=== PATIENT | female | born 1935 | race Caucasian/White ===

== ENCOUNTER 2017-10-12 10:12 | Inpatient (IN) ==
[2017-10-12 10:54] LABS: Basophils # (Auto) 0 K/mcL (0.0-0.3); Basophils % (Auto) 0.4 % (0.0-2.0); Eosinophils # (Auto) 0 K/mcL (0.0-0.7); Eosinophils % (Auto) 0.6 % (0.0-7.0); Granulocytes % (Auto) 71.4 % (38.0-78.0); Lymphocytes # (Auto) 0.5 K/mcL (1.5-4.8); Mean Cell Volume 98.3 fL (80.0-100.0); Mean Corpuscular Hemoglobin 32.4 pg (26.0-34.0); Monocytes # (Auto) 0.4 K/mcL (0.1-0.9); Monocytes % (Auto) 12.6 % (1.0-12.0); Platelet Count 158 K/mcL (140-440); RBC 2.45 M/mcL (4.00-5.20); Red Cell Distribution Width 16.1 % (11.5-14.5)
[2017-10-12 11:14] LABS: ALT/SGPT 13 U/l (0-40); Albumin 3.6 gm/dL (3.2-5.2); Albumin/Globulin Ratio 1.2 (1.0-2.3); Alkaline Phosphatase 42 U/L (39-117); Blood Urea Nitrogen 16 mg/dl (8-23)
--- NOTE | 2017-10-12 11:30 | Emergency Department Note ---
Recheck HPI - General Chief Complaint: Recheck/Abnormal Lab/Rx Stated Complaint: Low H&H Time Seen by Provider: 10/12/17 10:14 Source: patient Mode of arrival: wheelchair Limitations: no limitations - History of Present Illness HPI Narrative: 82-year-old female presents from [facility] due to low H&H. She had routine labs done and her hemoglobin was 6.4. She has been at [facility] for 2 days. She denies any symptoms such as abdominal pain, nausea, vomiting, black tarry stools , blood in her stools, dizziness. She is on oxygen and is on about 2 L. She has chronic congestive heart failure and respiratory failure. She is on Plavix. 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 She does not know if she has ever been anemic before and states she has never been treated for GI bleed. She is a DNR with limited intervention only. Her daughter is with her and would like her to have treatment if it will save her life. She has her power of contracts attorney. - Related Data Home Medications Medication Instructions Recorded Confirmed Raloxifene HCl [Evista] 60 mg PO DAILY 07/16/16 10/12/17 amLODIPine [Norvasc] 5 mg PO DAILY 07/16/16 10/12/17 hydrOXYzine [Atarax] 25 mg PO BIDP PRN 07/16/16 10/12/17 Acetaminophen [Tylenol] 650 mg PO Q4HP PRN 10/12/17 10/12/17 Anoro Ellipta 1 appful IN DAILY 10/12/17 10/12/17 Bisacodyl [Dulcolax] 10 mg UT DAILYP PRN 10/12/17 10/12/17 Clopidogrel Bisulfate [Plavix] 75 mg PO DAILY 10/12/17 10/12/17 Fish Oil/Borage/Flax/Om3,6,9#1 400 mg PO DAILY 10/12/17 10/12/17 [[place] 3-6-9 Complex Softgel] Furosemide [Lasix] 20 mg PO BID 10/12/17 10/12/17 Losartan Potassium [Cozaar] 100 mg PO DAILY 10/12/17 10/12/17 Magnesium Hydroxide [Milk of 30 ml PO DAILYP PRN 10/12/17 10/12/17 Magnesia] Metoprolol Tartrate [Lopressor] 25 mg PO BID 10/12/17 10/12/17 Multivitamin,Ther and Minerals 1 each PO DAILY 10/12/17 10/12/17 [Multivitamins with Minerals Hp] Na Phos,M-B/Na Phos,Di-Ba [Fleets 1 dose UT DAILYP PRN 10/12/17 10/12/17 Adult] Ranitidine HCl [Heartburn Relief] 150 mg PO BID 10/12/17 10/12/17 Allergies Allergy/AdvReac Type Severity Reaction Status Date / Time No Known Drug Allergies Allergy Verified 10/12/17 10:14 Review of Systems All systems ED: reviewed and negative except as stated. Past Medical History - Past Medical History Medical history: Reports: CHF, hypertension, other (respiratory failure chronic) Psychiatric history: Reports: no psych history CHILDR[employer] AUTHOR history: Reports: non-contributory Surgical history ED: Reports: non-contributory Family history: Reports: non-contributory - Social History smoking status: Former smoker Physical Exam Limitations: no limitations General appearance: alert, in no apparent distress Head: atraumatic Eye: Present: other (right eye shut, this is chronic) Neck: Present: normal inspection, full ROM Chest: Present: normal inspection, symmetric chest wall rise Respiratory: Present: other (decreased in lower lobes) Cardiovascular: Present: regular rate, normal heart sounds Abdominal: Present: soft, normal bowel sounds. Absent: tenderness Rectal: Present: heme (+) stool, bloody stool, other (She has a 1 cm pressure sore over the coccyx with some erythema surrounding) Extremities: Present: full ROM, pedal edema Neurological: Present: alert, oriented X3, CN II-XII intact Psychiatric: Present: normal affect, normal mood Skin: Present: warm, dry, intact Course Course Narrative: Patient stable. She will have a scope by Dr. Aguilar and will receive blood and be admitted by Dr. Hopper Vital Signs Temperature 98.7 F 10/12/17 10:14 Pulse Rate 70 10/12/17 10:14 Respiratory Rate 20 10/12/17 10:14 Blood Pressure 136/61 10/12/17 10:14 Pulse Oximetry (%) 94 10/12/17 10:14 Temperature 98.7 F 10/12/17 10:14 Pulse Rate 76 10/12/17 13:03 Respiratory Rate 27 H 10/12/17 13:03 Blood Pressure 141/88 10/12/17 13:03 Pulse Oximetry (%) 88 L 10/12/17 13:03 Recheck/Abnormal Lab/Rx - Lab Data Lab results reviewed: Yes I reviewed the patient's lab results. Result diagrams: 10/12/17 10:24 10/12/17 10:24 Lab Results 10/12/17 10/12/17 Range/Units 10:24 10:24 WBC 3.5 L (4.5-11.0) K/mcL RBC 2.45 L (4.00-5.20) M/mcL Hgb 7.9 L (12.0-15.0) g/dL Hct 24.1 L (36.0-48.0) % POC Hct 26.0 L (36.0-48.0) % MCV 98.3 (80.0-100.0) fL MCH 32.4 (26.0-34.0) pg MCHC 33.0 (31.0-36.0) g/dL RDW 16.1 H (11.5-14.5) % Plt Count 158 (140-440) K/mcL MPV 9.8 (7.4-10.4) fL Gran % 71.4 (38.0-78.0) % Lymph % (Auto) 15.0 L (15.5-49.0) % Cowley % (Auto) 12.6 H (1.0-12.0) % Eos % (Auto) 0.6 (0.0-7.0) % Baso % (Auto) 0.4 (0.0-2.0) % Gran # 2.5 (1.8-8.0) K/mcL Lymph # (Auto) 0.5 L (1.5-4.8) K/mcL Cowley # (Auto) 0.4 (0.1-0.9) K/mcL Eos # (Auto) 0 (0.0-0.7) K/mcL Baso # (Auto) 0 (0.0-0.3) K/mcL POC Sodium 139 (133-145) mmol/L Sodium 138 (133-145) mmol/L POC Potassium 3.6 (3.3-5.1) mmol/L Potassium 3.7 (3.3-5.1) mmol/L POC Chloride 96 (96-108) mmol/L Chloride 97 (96-108) mmol/L Carbon Dioxide 33 H (22-30) mmol/L POC Total CO2 29 (22-30) mmol/L Anion Gap 8.0 (8-16) POC BUN 17 (8-23) mg/dl BUN 16 (8-23) mg/dl Creatinine 1.0 (0.6-1.1) mg/dl POC Creatinine 1.2 H (0.6-1.1) mg/dl GFR Calculation 52 Glucose 105 (70-105) mg/dL POC Glucose 105 (70-105) mg/dL Calcium 8.7 (8.6-10.4) mg/dl POC WB Ioniz Calcium 1.10 L (1.16-1.32) mmol/L Total Bilirubin 0.2 (0.0-1.0) mg/dL AST 26 (0-37) U/l ALT 13 (0-40) U/l Alkaline Phosphatase 42 (39-117) U/L Total Protein 6.7 (5.9-8.4) gm/dL Albumin 3.6 (3.2-5.2) gm/dL Globulin 3.1 (2.2-3.7) gm/dL Albumin/Globulin Ratio 1.2 (1.0-2.3) - Radiology Data Radiology results reviewed: Yes I reviewed the patient's radiology results. Moderate left and small right pleural effusion with compressive atelectasis left lower lobe. Moderate cardiomegaly - no vascular congestion to suggest active CHF however. Disposition Pt seen by DOOR OPENER/PA only: Yes Clinical Impression: GI bleed, CHF (congestive heart failure), Pleural effusion Disposition: Xfer As Inpt ([facility]) Condition: Fair Referrals: Nicole Rey ARNP [Primary Care Provider] -
--- NOTE | 2017-10-12 11:41 | XRay Report ---
CLINICAL INFORMATION: Edema and lung crackles COMPARISON: None. FINDINGS: Heart is moderately enlarged. Mediastinum and pulmonary vessels are normal. Moderate left and small right pleural effusions are appreciated holding in compressive atelectasis of left lower lobe and inferior right lower and middle lobes. Bones soft tissues are normal. IMPRESSION: Moderate left and small right pleural effusion with compressive atelectasis left lower lobe. Moderate cardiomegaly - no vascular congestion to suggest active CHF however. Interpreted and Authenticated by: Jorge Barrera 10/12/17
[2017-10-12] MEDS ORDERED: 0.9 % SODIUM CHLORIDE 250 ML IV SCH ×2 (11:45→13:59)
--- NOTE | 2017-10-12 13:15 | Internal Med History&Physical ---
Medical - H&P: HPI Patient information: Note initiated : 10/12/17 at 1:08 pm Service Date, if different from initiated Date: [] Patient: Heidi Zhu 82 y/o F admitted on for Low H&H. Chief Complaint: [] History of present illness: Ms. Zhu is a 82 year old F with h/o chf, copd, on oxygen 2 L, cerebral aneurysm , pvd, presents to the ER today from [facility] for evaluation of low hb and progressively dropping hb. Daughter is by the bed side providing some history, pt is also able to participate in decision making process. The patient was admitted to [facility] last month it seems for respiratory failure, she was discharged home it seems, she was living with her grand daugther, but was unable to care for self, She was then admitted to [facility] 3 days ago. It seems her hb was checked during labs and her hb had dropped to 6.9, she was therefore sent here for further evaluation. The patient has no acute complaints or concerns, she is lying in bed without any complaints, no chest pain, no shortness of breath, no cough, no headache or dizziness, no changes or difficulty in swallowing, no GI complaints or symptoms , she has poor visino0 and unable t tell if she has had black stools or obvious blood in stools. In the ER she was noted to be hemodynamically stable, her CXR shows dell effusions, left > right, new since last cxr, but had effusions on previous x rays. her hb was 7.9, her f ob was positive. We do not have GI physician available for consult, Dr Mooney our general surgeon was consulted who agreed to evaluate patient and do the need ful EGD/ Colonoscopy after pt is stable. - Constitutional Constitutional: Present: fatigue, weakness. Absent: chills, fever(s), headache( s) - EENT Nose, mouth and throat: Absent: disequilibrium, dizziness, dysphagia - Cardiovascular Cardiovascular: Absent: chest pain, pedal edema, syncope - Respiratory Respiratory: Absent: dyspnea, wheezing - Gastrointestinal Gastrointestinal: Absent: diarrhea, dyspepsia, dysphagia - Genitourinary Genitourinary: Absent: hematuria - Musculoskeletal Musculoskeletal: Absent: muscle weakness, myalgias - Integumentary Integumentary: Absent: wounds, jaundice - Neurological Neurological: Absent: headache(s), syncope - Endocrine Endocrine: Absent: polydipsia, polyphagia, polyuria - Hematologic/Lymphatic Hematologic/Lymphatic: Absent: easy bleeding, easy bruising - Allergic/Immunologic Allergic/Immunologic: Absent: uticaria, wheezing Medical - H&P: PMH Medical history: HTN HLD Atheroscleorois Cerebral aneurysm COPD Chr resp failure 2 L oxygen carotid artery disease h/o ovarian cancer Surgical history: Hysterectomy Cerebral angiogram Pertinent family history: Sister melanoma Sister lung cancer Sister Stomach cancer Father [place] at 46 Social history: recnetly quit smoker lives in [facility] for 3 days denies etoh, Denies recreational drug use Medical - H&P: Meds Home Medications Medication Instructions Recorded Confirmed Type Raloxifene HCl [Evista] 60 mg PO DAILY 07/16/16 10/12/17 History amLODIPine [Norvasc] 5 mg PO DAILY 07/16/16 10/12/17 History hydrOXYzine [Atarax] 25 mg PO BIDP PRN 07/16/16 10/12/17 History Acetaminophen [Tylenol] 650 mg PO Q4HP PRN 10/12/17 10/12/17 History Anoro Ellipta 1 appful IN DAILY 10/12/17 10/12/17 History Bisacodyl [Dulcolax] 10 mg SD DAILYP PRN 10/12/17 10/12/17 History Clopidogrel Bisulfate [Plavix] 75 mg PO DAILY 10/12/17 10/12/17 History Fish Oil/Borage/Flax/Om3,6,9#1 400 mg PO DAILY 10/12/17 10/12/17 History [[place] 3-6-9 Complex Softgel] Furosemide [Lasix] 20 mg PO BID 10/12/17 10/12/17 History Losartan Potassium [Cozaar] 100 mg PO DAILY 10/12/17 10/12/17 History Magnesium Hydroxide [Milk of 30 ml PO DAILYP PRN 10/12/17 10/12/17 History Magnesia] Metoprolol Tartrate [Lopressor] 25 mg PO BID 10/12/17 10/12/17 History Multivitamin,Ther and Minerals 1 each PO DAILY 10/12/17 10/12/17 History [Multivitamins with Minerals Hp] Na Phos,M-B/Na Phos,Di-Ba [Fleets 1 dose SD DAILYP PRN 10/12/17 10/12/17 History Adult] Ranitidine HCl [Heartburn Relief] 150 mg PO BID 10/12/17 10/12/17 History Allergies Allergy/AdvReac Type Severity Reaction Status Date / Time No Known Drug Allergies Allergy Verified 10/12/17 10:14 Medical - H&P: Exam - Constitutional Vitals: Temp Pulse Resp BP Pulse Ox 98.7 F 76 27 H 141/88 88 L 10/12/17 10:14 10/12/17 13:03 10/12/17 13:03 10/12/17 13:03 10/12/17 13:03 Exam: GENERAL: The patient is a well-developed,mal-nourished in no apparent distress. Is alert and oriented x 3 VITAL SIGNS: Reviewed and as noted elsewhere. HEENT: Head is normocephalic and atraumatic. right eye is closed, unable to open (due to cerebral aneurysm). Pupils are equal, round, and reactive to light. Nares appeared normal. Mouth appears any without lesions. Mucous membranes are moist. NECK: Normal to inspection, Supple, No lymphadenopathy or thyromegaly. LUNGS: Air entry decreased on left side > right side, prolonged exp phase, dell crackles insipratory. HEART: Regular rate and rhythm normal, S1 and S2 heard, no Gallop, S3 or Rub Noted, ABDOMEN: Soft, nontender, and nondistended. Positive bowel sounds. No hepatosplenomegaly was noted. EXTREMITIES: No cyanosis, clubbing, rash, lesions, edema ++ NEUROLOGIC: Cranial nerves II through XII are grossly intact. Motor and Sensory System Grossly Intact PSYCHIATRIC: Normal affect, Normal Mood. Appropriate Behavior. SKIN: No ulceration or wounds noted, No jaundice, No rash noted. Medical - H&P: Reslt - Labs CBC & Chem 7: 10/12/17 10:24 10/12/17 10:24 Labs: Short CBC 10/12/17 Range/Units 10:24 WBC 3.5 L (4.5-11.0) K/mcL Hgb 7.9 L (12.0-15.0) g/dL Hct 24.1 L (36.0-48.0) % Plt Count 158 (140-440) K/mcL BMP 10/12/17 10:24 Sodium 138 Potassium 3.7 Chloride 97 Carbon Dioxide 33 H BUN 16 Creatinine 1.0 Glucose 105 Calcium 8.7 Liver Function 10/12/17 Range/Units 10:24 Total Bilirubin 0.2 (0.0-1.0) mg/dL AST 26 (0-37) U/l ALT 13 (0-40) U/l Alkaline Phosphatase 42 (39-117) U/L Albumin 3.6 (3.2-5.2) gm/dL - Impressions Cerebral Angiogram 08/2017 Ultrasound-guided vascular access x2. Hemostasis was achieved with manual compression. Aortogram and iliac angiography demonstrates severe bilateral common and external iliac artery calcified stenosis. This would be an impediment to access into the aorta, although on the right side, it is much more achievable. Right vertebral arteriography demonstrates the vertebral artery to end in PICA. Right common and cerebral arteriography demonstrates a severe calcified stenosis of the internal carotid artery origin. The carotid artery intracranially demonstrates a large carotid aneurysm with a wide neck. The aneurysm itself measures 18.28 x 19.64 millimeters with a carotid artery diameter of approximately 6 millimeters. The aneurysm itself is amenable to pipeline stent placement, however, the carotid artery is an impediment to access. 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 The patient's primary left hemispheric flow is from an enlarged ophthalmic artery with retrograde flow. Dominant left vertebral artery supplying both the right cerebellum as well as the posterior segments of the left MCA territory. Echo Conclusion: 1) Normal left ventricular size with left ventricular concentric remodeling and low normal ejection fraction of around 50 to 55% without obvious regional wall motion abnormalities. 2) Grade II diastolic dysfunction. 3) Trivial mitral insufficiency. 4) Mild tricuspid insufficiency with RV pressures of 37mmHg. 5) Of note is that during this study patient had stage II hypertension which may affect loading condition and left ventricular systolic performance. CXR 09/09/2017 Findings: Heart enlarged. Emphysematous changes present. No acute consolidation or pleural effusion. No pneumothorax. Impression: Cardiomegaly and COPD without acute pathology. Medical - H&P: A/P - Narrative A/P Narrative: A/P Acute GI bleed- General Surgery consulted for EGD/ Colnoscopy Acute blood loss anemia- Hb 7.9, transfuse 1 unit, monitor, on lasix to prevent volume overload congestive heart failure- Diastolic grade 2 , IV lasix for now Pleural effusion bilateral, left > right, could be from CHF, get CT given recent h/o pna Severe atherosclerosis- continue antiplatelet agents. HTN- continue beta nannette, hold zbigniew/arb for now monitor bp DVT scd given GIB DNR code status Plan of care reviewed with pt, pts fabiana and Dr Mooney.
[2017-10-12 13:40] LABS: Appearance,Urine CLEAR; Bacteria,Urine 0 /hpf (0); Bilirubin,Urine NEG (NEG); Color,Urine YELLOW; Glucose,Urine (UA) NEGATIVE (NEG); Leukocyte Esterase,Urine NEG /uL (NEG); Mucus,Urine FEW /hpf (0); Protein,Urine NEG (NEG); Specific Gravity,Urine 1.012 (1.000-1.035); Urine Blood NEG mg/dL (<0.03); Urine Hyaline Cast 4 /lpf (0-2); Urine RBC < 1 /hpf (0-1); Urine Squamous Epithelial Cell < 1 /hpf (0-4); Urine WBC 2 /hpf (0-4); Urobilinogen,Urine NEG (NEG)
--- NOTE | 2017-10-12 13:55 | General Surgery Consult Note ---
History of Present Illness Patient information: Note initiated : 10/12/17 at 1:53 pm Service Date, if different from initiated Date: [] Patient: Heidi Zhu 82 y/o F admitted on for Low H&H. Chief Complaint: [] Reason for consult: other (anemia and progressive weakness) History of present illness: 82-year-old female who was brought to the emergency room because personnel at the [facility] felt that she was having difficulty breathing. The patient has a history of congestive heart failure and recent pneumonia. She was treated at [facility] on 67 through 08/29/17 and 623 through 09/11/17 for these problems. She was home for 30 days but became progressively weaker. She was admitted to [facility] 3 days ago. Routine labs revealed that her hemoglobin was 7.9 and she was having difficulty breathing. She was therefore sent to the emergency room for evaluation. The patient has very poor vision and does not know if she has had rectal bleeding or melena. Her last recorded hemoglobin was 11.6 on 09/08/17. She does have significant rales and coarse tubular breath sounds with hypoxemia. She also has a new pleural effusion which was not apparent on the x- rays from 09/08 through 09/11/17. She has been admitted and will be transfused. Stool guaiacs will be checked. She has a fullness in the right upper quadrant that may be colonic in origin and will need to have an upper abdominal CT. Review of Systems - Constitutional fatigue, malaise, weakness, weight loss - EENT Eyes: bilateral: decreased vision, loss of peripheral vision Nose, mouth and throat: abnormal hearing - Cardiovascular irregular heart rhythm, leg edema, pedal edema, rapid heart rate, no chest pain with activity - Respiratory cough, dyspnea on exertion, chest congestion - Gastrointestinal bloating, no abdominal pain, no hematochezia, no melena, no nausea, no vomiting - Genitourinary Genitourinary: urinary frequency, urinary incontinence - Musculoskeletal abnormal gait (wheelchair-bound with very unsteady gait even with assistance) - Integumentary change in pigmentation, unusual bruising - Neurological as per HPI, abnormal gait, abnormal hearing, dizziness, lack of coordination - Psychiatric depression - Endocrine fatigue - Hematologic/Lymphatic easy bruising, no easy bleeding, no lymphadenopathy - Allergic/Immunologic no tongue swelling, no throat swelling, no uticaria, no wheezing, no lip swelling Past History Past medical history: Systolic congestive heart failure Hypertension Chronic obstructive lung disease with recent exacerbation Diabetes mellitus type 2 Peripheral vascular disease bilateral iliac and peripheral vessels 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 History of ovarian cancer Past surgical history: Total abdominal hysterectomy with bilateral salpingo-oophorectomy Past family history: Sister with melanoma Coronary artery disease Lung cancer Stomach cancer Past social history: Presently at [facility] Every day smoker Occasional drinker Medications and Allergies Home Medications Medication Instructions Recorded Confirmed Type Raloxifene HCl [Evista] 60 mg PO DAILY 07/16/16 10/12/17 History amLODIPine [Norvasc] 5 mg PO DAILY 07/16/16 10/12/17 History hydrOXYzine [Atarax] 25 mg PO BIDP PRN 07/16/16 10/12/17 History Acetaminophen [Tylenol] 650 mg PO Q4HP PRN 10/12/17 10/12/17 History Anoro Ellipta 1 appful IN DAILY 10/12/17 10/12/17 History Bisacodyl [Dulcolax] 10 mg GA DAILYP PRN 10/12/17 10/12/17 History Clopidogrel Bisulfate [Plavix] 75 mg PO DAILY 10/12/17 10/12/17 History Fish Oil/Borage/Flax/Om3,6,9#1 400 mg PO DAILY 10/12/17 10/12/17 History [Wallis 3-6-9 Complex Softgel] Furosemide [Lasix] 20 mg PO BID 10/12/17 10/12/17 History Losartan Potassium [Cozaar] 100 mg PO DAILY 10/12/17 10/12/17 History Magnesium Hydroxide [Milk of 30 ml PO DAILYP PRN 10/12/17 10/12/17 History Magnesia] Metoprolol Tartrate [Lopressor] 25 mg PO BID 10/12/17 10/12/17 History Multivitamin,Ther and Minerals 1 each PO DAILY 10/12/17 10/12/17 History [Multivitamins with Minerals Hp] Na Phos,M-B/Na Phos,Di-Ba [Fleets 1 dose GA DAILYP PRN 10/12/17 10/12/17 History Adult] Ranitidine HCl [Heartburn Relief] 150 mg PO BID 10/12/17 10/12/17 History Allergies Allergy/AdvReac Type Severity Reaction Status Date / Time No Known Drug Allergies Allergy Verified 10/12/17 10:14 Exam Temp Pulse Resp BP Pulse Ox 98.7 F 76 27 H 141/88 88 L 10/12/17 10:14 10/12/17 13:03 10/12/17 13:03 10/12/17 13:03 10/12/17 13:03 - General physical appearance well developed, well nourished, no distress, cachectic, chronically ill - Eyes normal ocular movement, other (decreased vision bilaterally for recognition of formed bilaterally markedly decreased vision on the right ptotic eyelid) left ptosis - ENT normal pinna, normal nares, normal mucosa, no congestion, decreased hearing - Head Head exam IM: Present: atraumatic, normal inspection, normocephalic - Neck no masses, no bruits, trachea midline, no lymphadectomy, no venous distension - Cardiovascular Cardiovascular exam IM: Present: irregular rhythm, +S1, +S2. Absent: JVD - Respiratory normal expansion, normal respiratory effort, other (slightly labored breathing bilaterally coarse tubular breath sounds with rhonchi and coarse rales bilaterally; expiratory wheezes) - Abdomen Abdomen: Present: soft, non tender, bowel sounds, masses (for this with possible mass right upper quadrant partially mobile suggested possible colonic lesion; mild dilation of abdomen with tympany to percussion; no tenderness to palpation; healed lower midline incision) Hernia: Present: none - Genitourinary Present: normal external genitalia - Integumentary Present: no rash, no growths, no abnormal pigmentation, other (superficial bruises in various areas of healing) - Neurologic Present: normal coordination, normal sensation - Musculoskeletal Present: other (patient is very weak so gait and stance were not) - Psychiatric Present: oriented to time, oriented to person, oriented to place, speech is normal, memory intact Results - Labs 10/12/17 10:24 10/12/17 10:24 Abnormal lab results 10/12/17 10/12/17 10/12/17 Range/Units 10:24 10:24 13:06 WBC 3.5 L (4.5-11.0) K/mcL RBC 2.45 L (4.00-5.20) M/mcL Hgb 7.9 L (12.0-15.0) g/dL Hct 24.1 L (36.0-48.0) % POC Hct 26.0 L (36.0-48.0) % RDW 16.1 H (11.5-14.5) % Lymph % (Auto) 15.0 L (15.5-49.0) % [place] % (Auto) 12.6 H (1.0-12.0) % Lymph # (Auto) 0.5 L (1.5-4.8) K/mcL Carbon Dioxide 33 H (22-30) mmol/L POC Creatinine 1.2 H (0.6-1.1) mg/dl POC WB Ioniz Calcium 1.10 L (1.16-1.32) mmol/L Hyaline Casts 4 H (0-2) /lpf Diabetes panel 10/12/17 Range/Units 10:24 Sodium 138 (133-145) mmol/L Potassium 3.7 (3.3-5.1) mmol/L Chloride 97 (96-108) mmol/L Carbon Dioxide 33 H (22-30) mmol/L BUN 16 (8-23) mg/dl Creatinine 1.0 (0.6-1.1) mg/dl Glucose 105 (70-105) mg/dL Calcium 8.7 (8.6-10.4) mg/dl AST 26 (0-37) U/l ALT 13 (0-40) U/l Alkaline Phosphatase 42 (39-117) U/L Total Protein 6.7 (5.9-8.4) gm/dL Albumin 3.6 (3.2-5.2) gm/dL Calcium panel 10/12/17 Range/Units 10:24 Calcium 8.7 (8.6-10.4) mg/dl Albumin 3.6 (3.2-5.2) gm/dL Pituitary panel 10/12/17 Range/Units 10:24 Sodium 138 (133-145) mmol/L Potassium 3.7 (3.3-5.1) mmol/L Chloride 97 (96-108) mmol/L Carbon Dioxide 33 H (22-30) mmol/L BUN 16 (8-23) mg/dl Creatinine 1.0 (0.6-1.1) mg/dl Glucose 105 (70-105) mg/dL Calcium 8.7 (8.6-10.4) mg/dl Adrenal panel 10/12/17 Range/Units 10:24 Sodium 138 (133-145) mmol/L Potassium 3.7 (3.3-5.1) mmol/L Chloride 97 (96-108) mmol/L Carbon Dioxide 33 H (22-30) mmol/L BUN 16 (8-23) mg/dl Creatinine 1.0 (0.6-1.1) mg/dl Glucose 105 (70-105) mg/dL Calcium 8.7 (8.6-10.4) mg/dl Total Bilirubin 0.2 (0.0-1.0) mg/dL AST 26 (0-37) U/l ALT 13 (0-40) U/l Alkaline Phosphatase 42 (39-117) U/L Total Protein 6.7 (5.9-8.4) gm/dL Albumin 3.6 (3.2-5.2) gm/dL All other labs normal. Assessment and Plan (1) Anemia Patient has drop in hemoglobin from 11.6-7.9 over the past month. She has guaiac positive stools. There is a suggestion of possible palpable lesion in the right upper quadrant which may or may not be colonic in origin. A CT of the abdomen with contrast will be done. She will be transfused to a hemoglobin of at least 9. After she is diuresed if she is clinically stable we'll consider colonoscopy and upper endoscopy. The patient is a DNI/DNR and this will have to be discussed with the patient to determine if she would want aggressive treatment if a colonic lesion is noted. She is a poor risk for aggressive intervention operatively but we probably could get her through the operation. Status: Acute Qualifiers: Iron deficiency anemia type: chronic blood loss (2) Systolic congestive heart failure Status: Acute (3) Hypertension Status: Acute (4) Chronic obstructive pulmonary disease with frequent exacerbations Status: Acute (5) Diabetes mellitus type 2 in nonobese Status: Acute
[2017-10-12] MEDS ORDERED: hydrOXYzine 25 MG TABLET PO PRN (13:59)
[2017-10-12] MEDS ORDERED: NALOXONE HCL 0.4 MG/ML VIAL IV PRN (13:59)
[2017-10-12] MEDS ORDERED: oxyCODONE/APAP 5/325MG TABLET PO PRN (13:59)
[2017-10-12] MEDS ORDERED: ONDANSETRON 4 MG/2 ML VIAL IV PRN (13:59)
[2017-10-12] MEDS ORDERED: ACETAMINOPHEN 325 MG TABLET PO PRN (13:59)
[2017-10-12] MEDS ORDERED: MAGNESIUM HYDROXIDE 30 ML ORAL.SUSP PO PRN (13:59)
[2017-10-12] MEDS ORDERED: IPRATROPIUM/ALBUTEROL 3 ML AMPUL.NEB NEB ONE (14:48)
[2017-10-12] MEDS: IPRATROPIUM/ALBUTEROL 3 ML AMPUL.NEB NEB SCH ×2 (14:50→19:25)
[2017-10-12] MEDS: 0.9 % SODIUM CHLORIDE 10 ML SYRINGE IV SCH ×2 (15:21→21:27)
[2017-10-12] MEDS: FUROSEMIDE 40 MG/4 ML VIAL IV SCH (15:21)
--- NOTE | 2017-10-12 15:43 | Cat Scan Report ---
CLINICAL INFORMATION: Moderate left and small right pleural effusions COMPARISON: Chest x-ray 10/12/2017 TECHNIQUE: 0.625 mm axial slices were obtained from the lung apices through the bases without intravenous contrast. 2.5 mm Sagittal, coronal and axial reformatted images were processed and reviewed at bone, lung and soft tissue windows. 7 mm axial MIP images were also reconstructed to optimize pulmonary nodule detection.The exam was performed using radiation dose optimization techniques including, but not limited to, automated exposure control, adjustment of the mA and/or kV according to patient size and use of iterative reconstruction technique. FINDINGS: Moderate left and small right pleural effusions are noted. There is compressive atelectasis of the medial posterior and lateral basilar segments of the left lower lobe and subsegmental atelectasis posterior right lower lobe. There is also mild bandlike subsegmental atelectasis of the posterior segment left upper lobe. Moderate patchy interstitial/alveolar infiltrate or edema is seen throughout most of the left upper lobe. This region, there is also thickening of the intralobular and interlobar septa. Mild patchy airspace disease noted in the right middle lobe and lingula is nonspecific but could represent infiltrate, edema or scarring. Mediastinal windows show marked cardiomegaly with extremely heavy calcific plaque in the visualized proximal coronary arteries. The central pulmonary arteries are mildly enlarged. Thoracic aorta is normal. No definite adenopathy seen in the mediastinal hilar or axillary regions. The thyroid is diminutive. The esophagus is grossly normal. Images through the abdomen show small amount of ascites. Liver is grossly normal. Spleen and visualized kidneys are normal. Small left calcification seen within the splenic veins. Bones soft tissues the chest wall show no significant abnormality IMPRESSION: 1. Moderate left pleural effusion resulting in compressive atelectasis of the medial posterior lateral basilar segments of the left lower lobe 2. Small right pleural effusion resulting subsegmental atelectasis posterior right lower lobe 3. Mild underlying chronic bronchitis changes 4. Moderate mixed interstitial/alveolar infiltrates of the left upper lobe of uncertain etiology and chronicity. It could represent residual edema around prior CHF versus fibrosis versus inflammation/pneumonia. Minimal patchy infiltrate in the right middle lobe and lingula. 5. Moderate cardiomegaly with extremely heavy calcific plaque in the coronary arteries 6. Moderate underlying chronic bronchitis and enlargement of the central pulmonary arteries just to, but not diagnostic, of pulmonary hypertension Interpreted and Authenticated by: Jorge Barrera 10/12/17
[2017-10-12] MEDS: BUDESONIDE 0.5 MG/2 ML AMPUL.NEB NEB SCH (19:25)
[2017-10-12] MEDS: METOPROLOL TARTRATE 25 MG TABLET PO SCH (21:27)
[2017-10-12] MEDS: FAMOTIDINE 20 MG TABLET PO SCH (21:27)
[2017-10-12 22:11] LABS: Basophils # (Auto) 0 K/mcL (0.0-0.3); Basophils % (Auto) 0.9 % (0.0-2.0); Eosinophils # (Auto) 0.1 K/mcL (0.0-0.7); Eosinophils % (Auto) 1.6 % (0.0-7.0); Lymphocytes # (Auto) 0.7 K/mcL (1.5-4.8); Lymphocytes % (Auto) 13.6 % (15.5-49.0); Mean Cell Volume 92.3 fL (80.0-100.0); Mean Corpuscular HGB Conc 32.6 g/dL (31.0-36.0); Mean Corpuscular Hemoglobin 30.1 pg (26.0-34.0); Monocytes # (Auto) 0.8 K/mcL (0.1-0.9); Monocytes % (Auto) 15.9 % (1.0-12.0); Platelet Count 155 K/mcL (140-440); RBC 2.91 M/mcL (4.00-5.20); Red Cell Distribution Width 15.2 % (11.5-14.5)
[2017-10-13] MEDS: IPRATROPIUM/ALBUTEROL 3 ML AMPUL.NEB NEB SCH ×4 (01:00→19:10)
[2017-10-13 05:42] LABS: Basophils # (Auto) 0 K/mcL (0.0-0.3); Basophils % (Auto) 0.5 % (0.0-2.0); Eosinophils # (Auto) 0.1 K/mcL (0.0-0.7); Eosinophils % (Auto) 1.8 % (0.0-7.0); Granulocytes % (Auto) 67.9 % (38.0-78.0); Lymphocytes # (Auto) 0.7 K/mcL (1.5-4.8); Lymphocytes % (Auto) 17.1 % (15.5-49.0); Mean Cell Volume 97.6 fL (80.0-100.0); Mean Corpuscular HGB Conc 34.1 g/dL (31.0-36.0); Mean Corpuscular Hemoglobin 33.2 pg (26.0-34.0); Monocytes # (Auto) 0.5 K/mcL (0.1-0.9); Monocytes % (Auto) 12.7 % (1.0-12.0); Platelet Count 138 K/mcL (140-440); RBC 2.59 M/mcL (4.00-5.20); Red Cell Distribution Width 15.5 % (11.5-14.5)
[2017-10-13] MEDS: 0.9 % SODIUM CHLORIDE 10 ML SYRINGE IV SCH ×3 (05:48→22:00)
[2017-10-13 07:16] LABS: ALT/SGPT 10 U/l (0-40); Albumin 2.8 gm/dL (3.2-5.2); Alkaline Phosphatase 35 U/L (39-117); Bilirubin,Direct < 0.2 mg/dL (0.0-0.3); Blood Urea Nitrogen 15 mg/dl (8-23); Gamma Glutamyl Transpeptidase 13 U/L (5-36); Uric Acid 6.4 mg/dL (2.5-8.0)
[2017-10-13] MEDS: BUDESONIDE 0.5 MG/2 ML AMPUL.NEB NEB SCH ×2 (07:30→19:10)
[2017-10-13] MEDS ORDERED: 0.9 % SODIUM CHLORIDE 250 ML IV SCH (08:30)
[2017-10-13] MEDS ORDERED: CLOPIDOGREL 75 MG TABLET PO SCH (09:00)
[2017-10-13] MEDS ORDERED: RALOXIFENE HCL 60 MG TABLET PO SCH (09:00)
[2017-10-13] MEDS ORDERED: FISH OIL 1,000 MG CAPSULE PO SCH (09:00)
[2017-10-13] MEDS ORDERED: IOPAMIDOL 100 ML BOTTLE IV ONE (09:14)
[2017-10-13] MEDS: FAMOTIDINE 20 MG TABLET PO SCH ×2 (10:20→19:23)
[2017-10-13] MEDS: Umeclidinium-Vilanterol [Anoro Ellipta] 62.5-25 mcg Inhaler INH SCH ×2 (10:21→13:53)
[2017-10-13] MEDS: FUROSEMIDE 40 MG/4 ML VIAL IV SCH (10:21)
[2017-10-13] MEDS: METOPROLOL TARTRATE 25 MG TABLET PO SCH ×2 (10:21→19:23)
--- NOTE | 2017-10-13 10:32 | Cat Scan Report ---
CLINICAL INFORMATION: Abdominal mass COMPARISON: None. TECHNIQUE: Following enteric contrast, 80 cc of Isovue-300 were injected intravenously, and 60 seconds later, 0.625 mm helical slices were obtained from the mid heart through the subtrochanteric regions. Following reconstruction, 2.5 mm sagittal, coronal and axial reformatted images were processed and reviewed at bone, lung and soft tissue windows. Five minutes later, 0.625 mm helical slices were obtained from the mid heart through the kidneys and viewed at soft tissue windows.The exam was performed using radiation dose optimization techniques including, but not limited to, automated exposure control, adjustment of the mA and/or kV according to patient size and use of iterative reconstruction technique. FINDINGS: Lung bases show moderate left and small right pleural effusions with consolidated atelectasis of most of the left lower lobe and subsegmental atelectasis in the posterior right lower lobe. The heart is moderately enlarged. Images of the abdomen show mild portal triad edema in the liver. No focal hepatic lesions. 4-5 large cholesterol stones the gallbladder ranging up to 15 mm. The gallbladder wall is normal thickness. Intrahepatic common hepatic common bile ducts are normal caliber - CBD is 2 mm. The pancreatic duct is mildly dilated - 3 mm, but the pancreatic parenchyma is unremarkable without evidence of inflammation. There is a 5 mm nonobstructing stone in the superior calyx of the left kidney. The remainder of both kidneys, adrenal glands and spleen are normal. The abdominal aorta is normal in caliber with a maximal diameter of 19 mm contains currently heavy calcific. Heavy calcific plaque in the celiac artery origin resulting in a stenosis greater than 50%. 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 The common hepatic artery is unremarkable. 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 The SMA and CARLOS demonstrate only scattered atherosclerotic plaque. There is extremely heavy calcific plaque in both common, internal and external iliac arteries. The right external iliac artery shows subocclusive stenosis greater than 90% Sears catheter is seen within the urinary bladder - the bladder is collapsed. Moderate simple ascites is widely distributed throughout the abdomen and pelvis. There is no free air or adenopathy. No evidence of varices. Stomach, small and large bowel show symmetric dilatation palpable with. Sternotomy/nephrectomy changes noted. Bone windows show grade 1 L4-5 spinal listhesis with left-sided spondylitic defects. Severe L4-5 degenerative disc disease noted no focal osseous lesions. IMPRESSION: 1. Mild periportal edema. This typically represents diffuse hepatocellular processes or, possibly, elevated right heart pressures. Heart is moderately enlarged with there appears to be enlargement of the right heart chambers and infrahepatic IVC. Please correlate with echocardiogram. Primary hepatocellular processes such as hepatitis or developing cirrhosis should also be considered. Consider ultrasound-guided hepatic parenchyma biopsy 2. Moderate simple ascites throughout the abdomen and pelvis. This may be related to primary hepatocellular disease. There is no evidence of portal hypertension however. 3. Cholelithiasis 4. Occlusion of the splenic artery 5. High-grade stenosis right external iliac artery. Please correlate with right leg claudication and diminished right groin pulses. 6. Mild ileus 7. 5 mm nonobstructing stone superior calyx of the left kidney - both kidneys are otherwise normal 8. Chronic L4-5 spondylolisthesis with left-sided spondylitic defect. Interpreted and Authenticated by: Jorge Barrera 10/13/17
--- NOTE | 2017-10-13 13:01 | Internal Med Progress Note ---
Medical - PN: Subj Patient information: Note initiated : 10/13/17 at 12:58 pm Service Date, if different from initiated Date: [] Patient: Heidi Zhu a 82 y/o F admitted on 10/12/17 for Low H&H. Chief Complaint: [] Interval history: Ms. Zhu is a 82 year old F with h/o chf, copd, on oxygen 2 L, cerebral aneurysm , pvd, presents to the ER today from [facility] for evaluation of low hb and progressively dropping hb. Daughter is by the bed side providing some history, pt is also able to participate in decision making process. The patient was admitted to [facility] last month it seems for respiratory failure, she was discharged home it seems, she was living with her grand daugther, but was unable to care for self, She was then admitted to [facility] 3 days ago. It seems her hb was checked during labs and her hb had dropped to 6.9, she was therefore sent here for further evaluation. The patient has no acute complaints or concerns, she is lying in bed without any complaints, no chest pain, no shortness of breath, no cough, no headache or dizziness, no changes or difficulty in swallowing, no GI complaints or symptoms , she has poor visino0 and unable t tell if she has had black stools or obvious blood in stools. In the ER she was noted to be hemodynamically stable, her CXR shows dell effusions, left > right, new since last cxr, but had effusions on previous x rays. her hb was 7.9, her f ob was positive. We do not have GI physician available for consult, Dr Aguilar our general surgeon was consulted who agreed to evaluate patient and do the need ful EGD/ Colonoscopy after pt is stable. 10/13 The patient seen examined, no acute overnight issues hb improved bu8t nmot > 9.0, pt on baseline oxygen needs has no complaints repeat transfusion again today Neg [address] chest neg for loculated effusion, will just use diuresis and see how she does CT abdomen ordered per surgery, will await results and surgery input with regards to further plans on bowel prep for colonoscopy/egd scopy Pertinent ROS: Denies headache, dizziness Denies chest pain, palpitations Denies cough or shortness of breath Denies abdominal pain, nausea or vomiting. - Constitutional Vitals: Vital Signs Temp Pulse Resp BP Pulse Ox 98.7 F 76 28 H 151/72 93 10/13/17 08:00 10/12/17 20:00 10/13/17 08:00 10/13/17 08:00 10/13/17 08:42 Period Temp Pulse Resp BP Sys/Concepcion Pulse Ox Last 24 Hr 98.7 F-99.9 F 74-79 17-36 94-169/59-96 79-99 Intake and Output 10/12/17 10/13/17 10/13/17 21:59 05:59 13:59 Intake Total 422 / 422 195 / 195 3 / 3 Output Total 1200 / 1200 1320 / 1320 Balance -778 / -778 -1125 / -1125 3 / 3 Weight 98 lb 8 oz Intake & Output: Intake & Output 10/12/17 10/13/17 10/13/17 21:59 05:59 13:59 Intake Total 422 / 422 195 / 195 3 / 3 Output Total 1200 / 1200 1320 / 1320 Balance -778 / -778 -1125 / -1125 3 / 3 Weight 98 lb 8 oz Intake: IV 58 / 3 / 3 Sodium Chloride 0.9% 250 ml @ 58 / 58 3 / 3 20 mls/hr IV .[id number] [facility] Rx#: [id number] Oral 195 / 195 Blood Product 364 / 364 Output: Urine Catheter Amount 1200 / 1200 1320 / 1320 Exam: Constitutional; Afebrile, cooperative, alert, not in distress. Eyes- No icterus, , No periorbital swelling Ears- Ext ear normal, hearing normal to conversation. Neck- Midline trachea, supple Respiratory system: Air Entry equal on both sides, No crackles or wheezing, no rhonchi. CVS- Rate rhythm regular, S1,S2 heard, no gallop, no rub. Abdomen- Soft nontender abdomen, no organomegaly, no tenderness, no guarding or rigidity, VP [employer]- AOOx3, moving all extremities, no gross focal deficit noted. Right eye closed (CN deficit due to aneurysm) Medical - PN: Obj Da - Labs CBC & Chem 7: 10/13/17 03:45 10/13/17 03:45 Labs: Abnormal Lab Results 10/13/17 10/13/17 10/12/17 03:45 03:45 21:20 WBC 4.3 L RBC 2.59 L 2.91 L Hgb 8.6 L 8.8 L Hct 25.2 L 26.8 L POC Hct RDW 15.5 H 15.2 H Plt Count 138 L Lymph % (Auto) 13.6 L [place] % (Auto) 12.7 H 15.9 H Lymph # (Auto) 0.7 L 0.7 L Carbon Dioxide 31 H POC Creatinine Calcium 8.3 L POC WB Ioniz Calcium Alkaline Phosphatase 35 L Lactate Dehydrogenase 319 H Total Protein 5.5 L Albumin 2.8 L Hyaline Casts 10/12/17 10/12/17 10/12/17 13:06 10:24 10:24 WBC 3.5 L RBC 2.45 L Hgb 7.9 L Hct 24.1 L POC Hct 26.0 L RDW 16.1 H Plt Count Lymph % (Auto) 15.0 L [place] % (Auto) 12.6 H Lymph # (Auto) 0.5 L Carbon Dioxide 33 H POC Creatinine 1.2 H Calcium POC WB Ioniz Calcium 1.10 L Alkaline Phosphatase Lactate Dehydrogenase Total Protein Albumin Hyaline Casts 4 H Meds: Medications Acetaminophen (Tylenol) 650 mg PO Q6HP PRN PRN Reason: PAIN/FEVER > 101 Albuterol/Ipratropium (Duoneb) 3 ml NEB Q6HRT [facility] Last Admin: 10/13/17 07:30 Dose: Not Given Budesonide (Pulmicort) 0.5 mg NEB Q12 [facility] Last Admin: 10/13/17 07:30 Dose: Not Given Clopidogrel Bisulfate (Plavix) 75 mg PO DAILY [facility] Last Admin: 10/13/17 10:20 Dose: 75 mg Famotidine (Pepcid) 20 mg PO BID [facility] Last Admin: 10/13/17 10:20 Dose: 20 mg Fish Oil (Fish Oil) 1,000 mg PO DAILY [facility] Last Admin: 10/13/17 10:20 Dose: 1,000 mg Furosemide (Lasix) 40 mg IV DAILY [facility] Last Admin: 10/13/17 10:21 Dose: 40 mg Furosemide (Lasix) 20 mg IV ONCE ONE Stop: 10/13/17 15:31 Hydroxyzine HCl (Atarax) 25 mg PO BIDP PRN PRN Reason: Itching Sodium Chloride (Sodium Chloride 0.9%) 250 mls @ 20 mls/hr IV .[id number] [facility] Stop: 10/13/17 20:59 Last Infusion: 10/13/17 11:40 Dose: 0 mls/hr Magnesium Hydroxide (Milk Of Magnesia) 30 ml PO DAILYP PRN PRN Reason: Constipation Metoprolol Tartrate (Lopressor) 25 mg PO BID [facility] Last Admin: 10/13/17 10:21 Dose: 25 mg Naloxone HCl (Narcan) 0.1 mg IV Q2MIN PRN PRN Reason: Opiate Reversal Ondansetron HCl (Zofran) 4 mg IV Q4HP PRN PRN Reason: Nausea And Vomiting Oxycodone/Acetaminophen (Percocet 5-325 Mg) 1 tab PO Q4HP PRN PRN Reason: PAIN LEVEL 3-6 Umeclidinium- Vilanterol [Anoro Ellipta] 62.5-25 Mcg Inhaler 1 dose INH DAILY [facility] Last Admin: 10/13/17 10:21 Dose: Not Given Raloxifene HCl (Evista) 60 mg PO DAILY [facility] Last Admin: 10/13/17 10:21 Dose: 60 mg Sodium Chloride (Saline Flush) 10 ml IV Q8 [facility] Last Admin: 10/13/17 05:48 Dose: 10 ml Medical - PN: A/P - Time Spent With Patient Total time spent is greater than 50% in coordination of care (as documented) at patient's floor/unit and/or counseling patient: - Narrative A/P Narrative: A/P Acute GI bleed- General Surgery consulted for EGD/ Colnoscopy, plan to stabilize patient and get CT Abdomen, plan for scopy after all results. Acute blood loss anemia- Hb 8.6 after 1 unit, appropriate rise, will tranfuse one more unit, no florid hemorraghe noted. CT done monitor. Goal hb > 9.0 given chf congestive heart failure- Diastolic grade 2 , IV lasix for now, Pleural effusion bilateral, left > right, could be from CHF, chest ct neg for loculated effusion, will try to see responce with just diuresis. Severe atherosclerosis- continue antiplatelet agents. COPD continue anoro, prn bronchodilator, on 2L oxygen stable requirements. No wheezing. HTN- continue beta nannette, resume norvasc and losartan given stable bp and renal function. DVT scd given GIB DNR code status Medical - PN: Qual - VTE Deep Vein Thrombosis/Pulmonary Embolism Present on Admission: No
[2017-10-13] MEDS ORDERED: amLODIPine 5 MG TABLET PO SCH (13:15)
--- NOTE | 2017-10-13 14:42 | General Surgery Progress Note ---
Subjective Patient reports: feels better, tolerating liquids well, flatus, no bowel movement, afebrile Narrative: Note initiated : 10/13/17 at 2:42 pm Service Date, if different from initiated Date: [] Patient: Heidi Zhu 82 y/o F admitted on 10/12/17 for Low H&H. Chief Complaint: [Patient is doing well. She is presently undergoing transfusion. She has not had a bowel movement as yet. There is evidence of fecal impaction which will have to be broken up before we can proceed with colonoscopy. There is no clinical evidence of ongoing bleeding at this time.] Objective Temp Pulse Resp BP Pulse Ox 98.7 F 76 28 H 151/72 93 10/13/17 08:00 10/12/17 20:00 10/13/17 08:00 10/13/17 08:00 10/13/17 08:42 - Additional Data Intake & Output - Last 24 hours: Intake & Output 10/11/17 10/12/17 10/13/17 10/14/17 05:59 05:59 05:59 05:59 Intake Total 651 / 651 623 / 623 Output Total 2520 / 2520 950 / 950 Balance -1869 / -1869 -327 / -327 Weight 98 lb 8 oz 98 lb 8 oz - General physical appearance no pain, chronically ill - Eyes other (poor vision bilaterally) - ENT decreased hearing - Neck no masses, no bruits, trachea midline, no venous distension - Respiratory other (decreased breath sounds in both lung milner but no rales or wheezes) - Cardiovascular Cardiovascular exam: Present: irregular rhythm, +S1, +S2. Absent: gallop - Abdomen soft, non tender, bowel sounds (abdomen is benign nontender fullness in the upper abdomen persists but is nontender. It may represent stool) - Rectum other (large volume fecal impaction) - Integumentary no rash, no growths, no abnormal pigmentation - Labs 10/17/17 05:32 10/17/17 05:32 Diabetes panel 10/13/17 Range/Units 03:45 Sodium 140 (133-145) mmol/L Potassium 3.9 (3.3-5.1) mmol/L Chloride 98 (96-108) mmol/L Carbon Dioxide 31 H (22-30) mmol/L BUN 15 (8-23) mg/dl Creatinine 0.9 (0.6-1.1) mg/dl Glucose 70 (70-105) mg/dL Calcium 8.3 L (8.6-10.4) mg/dl AST 28 (0-37) U/l ALT 10 (0-40) U/l Alkaline Phosphatase 35 L (39-117) U/L Total Protein 5.5 L (5.9-8.4) gm/dL Albumin 2.8 L (3.2-5.2) gm/dL Triglycerides 61 (<150) mg/dl Calcium panel 10/13/17 Range/Units 03:45 Calcium 8.3 L (8.6-10.4) mg/dl Phosphorus 3.9 (2.7-4.5) mg/dL Albumin 2.8 L (3.2-5.2) gm/dL Pituitary panel 10/13/17 Range/Units 03:45 Sodium 140 (133-145) mmol/L Potassium 3.9 (3.3-5.1) mmol/L Chloride 98 (96-108) mmol/L Carbon Dioxide 31 H (22-30) mmol/L BUN 15 (8-23) mg/dl Creatinine 0.9 (0.6-1.1) mg/dl Glucose 70 (70-105) mg/dL Calcium 8.3 L (8.6-10.4) mg/dl Adrenal panel 10/13/17 Range/Units 03:45 Sodium 140 (133-145) mmol/L Potassium 3.9 (3.3-5.1) mmol/L Chloride 98 (96-108) mmol/L Carbon Dioxide 31 H (22-30) mmol/L BUN 15 (8-23) mg/dl Creatinine 0.9 (0.6-1.1) mg/dl Glucose 70 (70-105) mg/dL Calcium 8.3 L (8.6-10.4) mg/dl Total Bilirubin 0.3 (0.0-1.0) mg/dL AST 28 (0-37) U/l ALT 10 (0-40) U/l Alkaline Phosphatase 35 L (39-117) U/L Total Protein 5.5 L (5.9-8.4) gm/dL Albumin 2.8 L (3.2-5.2) gm/dL Assessment and Plan (1) Anemia Status: Acute Assessment and plan: Presently being transfused We'll make arrangements for bowel prep and upper and lower endoscopy We'll discuss with family members how aggressive they want to be if she has a treatable lesion of her colon (2) Systolic congestive heart failure Status: Acute (3) Hypertension Status: Acute (4) Chronic obstructive pulmonary disease with frequent exacerbations Status: Acute (5) Diabetes mellitus type 2 in nonobese Status: Acute - Time Spent With Patient Total time spent is greater than 50% in coordination of care (as documented) at patient's floor/unit and/or counseling patient:
[2017-10-13] MEDS: POLYETHYLENE GLYCOL 3350 17 GM PACKET PO SCH ×2 (15:20→19:23)
[2017-10-13] MEDS ORDERED: FUROSEMIDE 20 MG/2 ML VIAL IV ONE (15:30)
[2017-10-14] MEDS: IPRATROPIUM/ALBUTEROL 3 ML AMPUL.NEB NEB SCH ×4 (03:00→19:56)
[2017-10-14] MEDS: 0.9 % SODIUM CHLORIDE 10 ML SYRINGE IV SCH ×3 (05:51→20:16)
[2017-10-14 06:11] LABS: ALT/SGPT 13 U/l (0-40); Albumin 3.1 gm/dL (3.2-5.2); Alkaline Phosphatase 37 U/L (39-117); Bilirubin,Direct < 0.2 mg/dL (0.0-0.3); Blood Urea Nitrogen 12 mg/dl (8-23); Gamma Glutamyl Transpeptidase 15 U/L (5-36); Uric Acid 6.9 mg/dL (2.5-8.0)
[2017-10-14 06:17] LABS: Basophils # (Auto) 0 K/mcL (0.0-0.3); Basophils % (Auto) 0.6 % (0.0-2.0); Eosinophils # (Auto) 0.1 K/mcL (0.0-0.7); Eosinophils % (Auto) 1.5 % (0.0-7.0); Granulocytes % (Auto) 74.3 % (38.0-78.0); Lymphocytes # (Auto) 0.7 K/mcL (1.5-4.8); Lymphocytes % (Auto) 12.3 % (15.5-49.0); Mean Cell Volume 94.9 fL (80.0-100.0); Mean Corpuscular Hemoglobin 32.3 pg (26.0-34.0); Monocytes # (Auto) 0.6 K/mcL (0.1-0.9); Monocytes % (Auto) 11.3 % (1.0-12.0); Platelet Count 152 K/mcL (140-440); RBC 3.52 M/mcL (4.00-5.20)
[2017-10-14] MEDS: BUDESONIDE 0.5 MG/2 ML AMPUL.NEB NEB SCH ×3 (07:24→19:56)
[2017-10-14] MEDS ORDERED: MAGNESIUM HYDROXIDE 30 ML ORAL.SUSP PO PRN (08:41)
[2017-10-14] MEDS ORDERED: ACETAMINOPHEN 325 MG TABLET PO PRN (08:41)
[2017-10-14] MEDS ORDERED: hydrOXYzine 25 MG TABLET PO PRN (08:41)
[2017-10-14] MEDS ORDERED: NALOXONE HCL 0.4 MG/ML VIAL IV PRN (08:41)
[2017-10-14] MEDS ORDERED: ONDANSETRON 4 MG/2 ML VIAL IV PRN (08:41)
[2017-10-14] MEDS ORDERED: oxyCODONE/APAP 5/325MG TABLET PO PRN (08:41)
[2017-10-14] MEDS ORDERED: LOSARTAN 50 MG TABLET PO SCH (09:00)
[2017-10-14] MEDS ORDERED: amLODIPine 5 MG TABLET PO SCH (09:00)
[2017-10-14] MEDS: CLOPIDOGREL 75 MG TABLET PO SCH (10:41)
[2017-10-14] MEDS: RALOXIFENE HCL 60 MG TABLET PO SCH (10:41)
[2017-10-14] MEDS: Umeclidinium-Vilanterol [Anoro Ellipta] 62.5-25 mcg Inhaler INH SCH (10:41)
[2017-10-14] MEDS: POLYETHYLENE GLYCOL 3350 17 GM PACKET PO SCH ×2 (10:41→20:16)
[2017-10-14] MEDS: LOSARTAN 50 MG TABLET PO SCH (10:41)
[2017-10-14] MEDS: FISH OIL 1,000 MG CAPSULE PO SCH (10:41)
[2017-10-14] MEDS: METOPROLOL TARTRATE 25 MG TABLET PO SCH ×2 (10:42→20:16)
[2017-10-14] MEDS: FUROSEMIDE 40 MG/4 ML VIAL IV SCH (10:42)
[2017-10-14] MEDS: FAMOTIDINE 20 MG TABLET PO SCH ×2 (10:42→20:16)
[2017-10-14] MEDS: amLODIPine 5 MG TABLET PO SCH (10:42)
--- NOTE | 2017-10-14 13:29 | Internal Med Progress Note ---
Medical - PN: Subj Patient information: Note initiated : 10/14/17 at 1:23 pm Service Date, if different from initiated Date: [] Patient: Heidi Zhu a 82 y/o F admitted on 10/12/17 for Low H&H/GI Bleed, CHF , Pleural Effusion. Chief Complaint: [] Interval history: Ms. Zhu is a 82 year old F with h/o chf, copd, on oxygen 2 L, cerebral aneurysm , pvd, presents to the ER today from [facility] for evaluation of low hb and progressively dropping hb. Daughter is by the bed side providing some history, pt is also able to participate in decision making process. The patient was admitted to [facility] last month it seems for respiratory failure, she was discharged home it seems, she was living with her grand daugther, but was unable to care for self, She was then admitted to [facility] 3 days ago. It seems her hb was checked during labs and her hb had dropped to 6.9, she was therefore sent here for further evaluation. The patient has no acute complaints or concerns, she is lying in bed without any complaints, no chest pain, no shortness of breath, no cough, no headache or dizziness, no changes or difficulty in swallowing, no GI complaints or symptoms , she has poor visino0 and unable t tell if she has had black stools or obvious blood in stools. In the ER she was noted to be hemodynamically stable, her CXR shows dell effusions, left > right, new since last cxr, but had effusions on previous x rays. her hb was 7.9, her f ob was positive. We do not have GI physician available for consult, Dr Aguilar our general surgeon was consulted who agreed to evaluate patient and do the need ful EGD/ Colonoscopy after pt is stable. 10/13 The patient seen examined, no acute overnight issues hb improved bu8t nmot > 9.0, pt on baseline oxygen needs has no complaints repeat transfusion again today Neg [address] chest neg for loculated effusion, will just use diuresis and see how she does CT abdomen ordered per surgery, will await results and surgery input with regards to further plans on bowel prep for colonoscopy/egd scopy 10/14 Pt seen examined, no acute overnight issues, pt received 1 unit prbc yesteday, hb 11.4 today, good rise no black stools, no hematuria, no hematochezia fob still positive Pt has no complaints on liquid diet awaiting decision from Dr Aguilar regarding plan for EGD/ Colonoscopy Pertinent ROS: Denies headache, dizziness Denies chest pain, palpitations Denies cough or shortness of breath Denies abdominal pain, nausea or vomiting. - Constitutional Vitals: Vital Signs Temp Pulse Resp BP Pulse Ox 97.9 F 66 21 135/63 95 10/14/17 12:00 10/13/17 19:28 10/14/17 12:00 10/14/17 12:00 10/14/17 12:00 Period Temp Pulse Resp BP Sys/Concepcion Pulse Ox Last 24 Hr 97.9 F-99.4 F 62-69 16-30 135-159/56-92 91-95 Intake and Output 10/13/17 10/14/17 10/14/17 21:59 05:59 13:59 Intake Total 625 / 625 360 / 360 Output Total 875 / 875 650 / 650 Balance -250 / -250 -290 / -290 Weight 97 lb 6.4 oz Intake & Output: Intake & Output 10/13/17 10/14/17 10/14/17 21:59 05:59 13:59 Intake Total 625 / 625 360 / 360 Output Total 875 / 875 650 / 650 Balance -250 / -250 -290 / -290 Weight 97 lb 6.4 oz Intake: IV 75 / 75 Sodium Chloride 0.9% 250 ml @ 75 / 75 20 mls/hr IV .[id number] [facility] Rx#: [id number] Oral 550 / 550 360 / 360 Output: Urine Catheter Amount 875 / 875 650 / 650 Other: Meal Dinner Percent of Meal Consumed 100% Feeding Ability Independent Stool Size Large Moderate Stool Color Brown Black Stool Consistency Soft Soft Dry and Hard Formed # Bowel Movements 1 1 # of times incontinent of 1 Bowels Exam: Constitutional; Afebrile, cooperative, alert, not in distress. Eyes- No icterus, , No periorbital swelling Ears- Ext ear normal, hearing normal to conversation. Neck- Midline trachea, supple Respiratory system: Air Entry equal on both sides, No crackles or wheezing, no rhonchi. CVS- Rate rhythm regular, S1,S2 heard, no gallop, no rub. Abdomen- Soft nontender abdomen, no organomegaly, no tenderness, no guarding or rigidity, [employer] PROGRAM OFFICER- AOOx3, moving all extremities, exam unchanged Medical - PN: Obj Da - Labs CBC & Chem 7: 10/14/17 03:52 10/14/17 03:52 Labs: Abnormal Lab Results 10/14/17 10/14/17 10/13/17 03:52 03:52 03:45 WBC RBC 3.52 L Hgb 11.4 L Hct 33.4 L POC Hct RDW 16.0 H Plt Count Lymph % (Auto) 12.3 L [place] % (Auto) Lymph # (Auto) 0.7 L Carbon Dioxide 33 H 31 H POC Creatinine Glucose 67 L Calcium 8.4 L 8.3 L POC WB Ioniz Calcium Alkaline Phosphatase 37 L 35 L Lactate Dehydrogenase 280 H 319 H Total Protein 5.5 L Albumin 3.1 L 2.8 L Hyaline Casts 10/13/17 10/12/17 10/12/17 03:45 21:20 13:06 WBC 4.3 L RBC 2.59 L 2.91 L Hgb 8.6 L 8.8 L Hct 25.2 L 26.8 L POC Hct RDW 15.5 H 15.2 H Plt Count 138 L Lymph % (Auto) 13.6 L [place] % (Auto) 12.7 H 15.9 H Lymph # (Auto) 0.7 L 0.7 L Carbon Dioxide POC Creatinine Glucose Calcium POC WB Ioniz Calcium Alkaline Phosphatase Lactate Dehydrogenase Total Protein Albumin Hyaline Casts 4 H 10/12/17 10/12/17 10:24 10:24 WBC 3.5 L RBC 2.45 L Hgb 7.9 L Hct 24.1 L POC Hct 26.0 L RDW 16.1 H Plt Count Lymph % (Auto) 15.0 L [place] % (Auto) 12.6 H Lymph # (Auto) 0.5 L Carbon Dioxide 33 H POC Creatinine 1.2 H Glucose Calcium POC WB Ioniz Calcium 1.10 L Alkaline Phosphatase Lactate Dehydrogenase Total Protein Albumin Hyaline Casts Meds: Medications Acetaminophen (Tylenol) 650 mg PO Q6HP PRN PRN Reason: PAIN/FEVER > 101 Albuterol/Ipratropium (Duoneb) 3 ml NEB Q6HRT [facility] Amlodipine Besylate (Norvasc) 5 mg PO DAILY [facility] Last Admin: 10/14/17 10:42 Dose: 5 mg Budesonide (Pulmicort) 0.5 mg NEB Q12 [facility] Last Admin: 10/14/17 11:12 Dose: Not Given Clopidogrel Bisulfate (Plavix) 75 mg PO DAILY [facility] Last Admin: 10/14/17 10:41 Dose: 75 mg Famotidine (Pepcid) 20 mg PO BID [facility] Last Admin: 10/14/17 10:42 Dose: 20 mg Fish Oil (Fish Oil) 1,000 mg PO DAILY [facility] Last Admin: 10/14/17 10:41 Dose: 1,000 mg Furosemide (Lasix) 40 mg IV DAILY [facility] Last Admin: 10/14/17 10:42 Dose: 40 mg Hydroxyzine HCl (Atarax) 25 mg PO BIDP PRN PRN Reason: Itching Losartan Potassium (Cozaar) 50 mg PO DAILY [facility] Last Admin: 10/14/17 10:41 Dose: 50 mg Magnesium Hydroxide (Milk Of Magnesia) 30 ml PO DAILYP PRN PRN Reason: Constipation Metoprolol Tartrate (Lopressor) 25 mg PO BID [facility] Last Admin: 10/14/17 10:42 Dose: 25 mg Naloxone HCl (Narcan) 0.1 mg IV Q2MIN PRN PRN Reason: Opiate Reversal Ondansetron HCl (Zofran) 4 mg IV Q4HP PRN PRN Reason: Nausea And Vomiting Oxycodone/Acetaminophen (Percocet 5-325 Mg) 1 tab PO Q4HP PRN PRN Reason: PAIN LEVEL 3-6 Umeclidinium- Vilanterol [Anoro Ellipta] 62.5-25 Mcg Inhaler 1 dose INH DAILY [facility] Last Admin: 10/14/17 10:41 Dose: 1 dose Polyethylene Glycol (Miralax) 17 gm PO BID [facility] Last Admin: 10/14/17 10:41 Dose: 17 gm Raloxifene HCl (Evista) 60 mg PO DAILY [facility] Last Admin: 10/14/17 10:41 Dose: 60 mg Sodium Chloride (Saline Flush) 10 ml IV Q8 [facility] Medical - PN: A/P - Time Spent With Patient Total time spent is greater than 50% in coordination of care (as documented) at patient's floor/unit and/or counseling patient: - Narrative A/P Narrative: A/P Acute GI bleed- General Surgery consulted for EGD/ Colnoscopy, plan to stabilize patient and get CT Abdomen, plan for scopy after all results. await further surgery reccs Acute blood loss anemia- Hb 11, monitor. s/p 2 units transfusion congestive heart failure- Diastolic grade 2 , IV lasix for now, Pleural effusion bilateral, left > right, could be from CHF, chest ct neg for loculated effusion, will try to see responce with just diuresis. recheck CXR in AM Severe atherosclerosis- continue antiplatelet agents. COPD continue anoro, prn bronchodilator, on 2L oxygen stable requirements. No wheezing. HTN- continue beta nannette, resume norvasc and losartan given stable bp and renal function. DVT scd given GIB DNR code status xfer to med surg status. Medical - PN: Qual - VTE Deep Vein Thrombosis/Pulmonary Embolism Present on Admission: No
--- NOTE | 2017-10-14 15:04 | General Surgery Progress Note ---
Subjective Patient reports: feels better, tolerating liquids well, bowel movement, afebrile Narrative: Note initiated : 10/14/17 at 3:04 pm Service Date, if different from initiated Date: [] Patient: Heidi Zhu 82 y/o F admitted on 10/12/17 for Low H&H/GI Bleed, CHF , Pleural Effusion. Chief Complaint: [Patient is clinically stable. Her hemoglobin is stable without any significant decrease. Her bowel movements and finally started and there is no evidence of overt blood though the nurses states that her guaiacs were positive. Bowel prep will continue until she is adequately prepped. Discussed the procedures with her family.] Objective Temp Pulse Resp BP Pulse Ox 97.9 F 66 21 135/63 95 10/14/17 12:00 10/13/17 19:28 10/14/17 12:00 10/14/17 12:00 10/14/17 13:25 - Additional Data Intake & Output - Last 24 hours: Intake & Output 10/12/17 10/13/17 10/14/17 10/15/17 05:59 05:59 05:59 05:59 Intake Total 651 / 651 1608 / 1608 Output Total 2520 / 2520 2475 / 2475 Balance -1869 / -1869 -867 / -867 Weight 98 lb 8 oz 97 lb 6.4 oz - General physical appearance no pain, chronically ill - Eyes other (poor vision bilaterally) - ENT normal pinna, normal nares, normal mucosa, no congestion, decreased hearing - Neck no masses, no bruits, trachea midline, no venous distension - Respiratory other (decreased breath sounds bilaterally but no rales or wheezes) - Cardiovascular Cardiovascular exam: Present: normal rate and rhythm, RRR, +S1, +S2. Absent: JVD, tachycardia - Abdomen non tender, bowel sounds (present), surgical scars (none), masses (none), distended (still distended; mass in left upper quadrant is no longer palpable) - Rectum other (no solid stool in rectal vault) - Integumentary no rash, no growths, no abnormal pigmentation - Labs 10/17/17 05:32 10/17/17 05:32 Diabetes panel 10/14/17 Range/Units 03:52 Sodium 139 (133-145) mmol/L Potassium 3.7 (3.3-5.1) mmol/L Chloride 97 (96-108) mmol/L Carbon Dioxide 33 H (22-30) mmol/L BUN 12 (8-23) mg/dl Creatinine 0.9 (0.6-1.1) mg/dl Glucose 67 L (70-105) mg/dL Calcium 8.4 L (8.6-10.4) mg/dl AST 26 (0-37) U/l ALT 13 (0-40) U/l Alkaline Phosphatase 37 L (39-117) U/L Total Protein 6.1 (5.9-8.4) gm/dL Albumin 3.1 L (3.2-5.2) gm/dL Triglycerides 76 (<150) mg/dl Calcium panel 10/14/17 Range/Units 03:52 Calcium 8.4 L (8.6-10.4) mg/dl Phosphorus 3.4 (2.7-4.5) mg/dL Albumin 3.1 L (3.2-5.2) gm/dL Pituitary panel 10/14/17 Range/Units 03:52 Sodium 139 (133-145) mmol/L Potassium 3.7 (3.3-5.1) mmol/L Chloride 97 (96-108) mmol/L Carbon Dioxide 33 H (22-30) mmol/L BUN 12 (8-23) mg/dl Creatinine 0.9 (0.6-1.1) mg/dl Glucose 67 L (70-105) mg/dL Calcium 8.4 L (8.6-10.4) mg/dl Adrenal panel 10/14/17 Range/Units 03:52 Sodium 139 (133-145) mmol/L Potassium 3.7 (3.3-5.1) mmol/L Chloride 97 (96-108) mmol/L Carbon Dioxide 33 H (22-30) mmol/L BUN 12 (8-23) mg/dl Creatinine 0.9 (0.6-1.1) mg/dl Glucose 67 L (70-105) mg/dL Calcium 8.4 L (8.6-10.4) mg/dl Total Bilirubin 0.4 (0.0-1.0) mg/dL AST 26 (0-37) U/l ALT 13 (0-40) U/l Alkaline Phosphatase 37 L (39-117) U/L Total Protein 6.1 (5.9-8.4) gm/dL Albumin 3.1 L (3.2-5.2) gm/dL Assessment and Plan (1) Anemia Status: Acute Assessment and plan: Clinically stable at this time without evidence of bleeding We'll schedule for EGD and colonoscopy in 2 days (2) Systolic congestive heart failure Status: Acute (3) Hypertension Status: Acute (4) Chronic obstructive pulmonary disease with frequent exacerbations Status: Acute (5) Diabetes mellitus type 2 in nonobese Status: Acute - Time Spent With Patient Total time spent is greater than 50% in coordination of care (as documented) at patient's floor/unit and/or counseling patient:
[2017-10-14] MEDS: MAGNESIUM CITRATE 300 ML ORAL.SOL PO SCH (17:11)
[2017-10-15] MEDS: IPRATROPIUM/ALBUTEROL 3 ML AMPUL.NEB NEB SCH ×4 (04:04→18:54)
[2017-10-15] MEDS: 0.9 % SODIUM CHLORIDE 10 ML SYRINGE IV SCH ×3 (05:46→20:26)
[2017-10-15] MEDS: MAGNESIUM CITRATE 300 ML ORAL.SOL PO SCH ×2 (05:46→17:54)
[2017-10-15 06:23] LABS: ALT/SGPT 11 U/l (0-40); Albumin 2.8 gm/dL (3.2-5.2); Alkaline Phosphatase 37 U/L (39-117); Bilirubin,Direct < 0.2 mg/dL (0.0-0.3); Blood Urea Nitrogen 9 mg/dl (8-23); Gamma Glutamyl Transpeptidase 12 U/L (5-36); Uric Acid 6.3 mg/dL (2.5-8.0)
[2017-10-15 06:59] LABS: Basophils # (Auto) 0 K/mcL (0.0-0.3); Basophils % (Auto) 0.7 % (0.0-2.0); Eosinophils # (Auto) 0.1 K/mcL (0.0-0.7); Eosinophils % (Auto) 1.4 % (0.0-7.0); Granulocytes % (Auto) 69.5 % (38.0-78.0); Lymphocytes # (Auto) 0.8 K/mcL (1.5-4.8); Lymphocytes % (Auto) 16.6 % (15.5-49.0); Mean Cell Volume 95.3 fL (80.0-100.0); Mean Corpuscular HGB Conc 34.1 g/dL (31.0-36.0); Mean Corpuscular Hemoglobin 32.5 pg (26.0-34.0); Monocytes # (Auto) 0.6 K/mcL (0.1-0.9); Monocytes % (Auto) 11.8 % (1.0-12.0); Platelet Count 150 K/mcL (140-440); RBC 3.36 M/mcL (4.00-5.20)
[2017-10-15] MEDS: BUDESONIDE 0.5 MG/2 ML AMPUL.NEB NEB SCH ×2 (07:54→19:00)
[2017-10-15] MEDS: POLYETHYLENE GLYCOL 3350 17 GM PACKET PO SCH ×2 (08:31→20:26)
[2017-10-15] MEDS: LOSARTAN 50 MG TABLET PO SCH (08:32)
[2017-10-15] MEDS: FISH OIL 1,000 MG CAPSULE PO SCH (08:32)
[2017-10-15] MEDS: FAMOTIDINE 20 MG TABLET PO SCH ×2 (08:32→20:26)
[2017-10-15] MEDS: RALOXIFENE HCL 60 MG TABLET PO SCH (08:32)
[2017-10-15] MEDS: CLOPIDOGREL 75 MG TABLET PO SCH (08:32)
[2017-10-15] MEDS: FUROSEMIDE 40 MG/4 ML VIAL IV SCH (08:33)
[2017-10-15] MEDS: METOPROLOL TARTRATE 25 MG TABLET PO SCH ×2 (08:33→20:26)
[2017-10-15] MEDS: amLODIPine 5 MG TABLET PO SCH (08:33)
[2017-10-15] MEDS: Umeclidinium-Vilanterol [Anoro Ellipta] 62.5-25 mcg Inhaler INH SCH (08:36)
--- NOTE | 2017-10-15 09:27 | XRay Report ---
CLINICAL INFORMATION: Pleural effusion COMPARISON: 10/12/2017 FINDINGS: Moderate cardiomegaly is unchanged. Mediastinum and pulmonary vasculature are normal. Moderate left pleural effusion resulting in compressive atelectasis in the inferior lingula and left lower lobe is stable. Moderate underlying chronic bronchitis changes noted Small right pleural effusion has slightly decreased. IMPRESSION: Moderate left pleural effusion with compressive atelectasis of the lingula and inferior left lower lobe - stable. Small right effusion is unchanged. Underlying chronic bronchitis. No echographic evidence of left upper lobe infiltrate that was suspected on recent chest CT Interpreted and Authenticated by: Jorge Barrera 10/15/17
--- NOTE | 2017-10-15 13:56 | General Surgery Progress Note ---
Subjective Patient reports: feels better, pain is less, tolerating liquids well, flatus, bowel movement, shortness of breath, afebrile Narrative: Note initiated : 10/15/17 at 1:54 pm Service Date, if different from initiated Date: [] Patient: Heidi Zhu 82 y/o F admitted on 10/12/17 for Low H&H/GI Bleed, CHF , Pleural Effusion. Chief Complaint: [patient states that she is awake but she is not very short of breath . She denies abdominal pain. She is having liquid bowel movements now which dark so she was counseled for upper endoscopy as well as colonoscopy. This will be done tomorrow. Hemoglobin remained stable over the last day.] Objective Temp Pulse Resp BP Pulse Ox 98.2 F 74 18 123/65 93 10/15/17 11:15 10/15/17 12:48 10/15/17 12:48 10/15/17 11:15 10/15/17 11:15 - Additional Data Intake & Output - Last 24 hours: Intake & Output 10/13/17 10/14/17 10/15/17 10/16/17 05:59 05:59 05:59 05:59 Intake Total 651 / 651 1608 / 1608 700 / 700 650 / 650 Output Total 2520 / 2520 2475 / 2475 900 / 900 Balance -1869 / -1869 -867 / -867 -200 / -200 650 / 650 Weight 98 lb 8 oz 97 lb 6.4 oz 98 lb 8 oz - General physical appearance no distress, cachectic, chronically ill - Eyes other (ptosis right eye with markedly decreased vision left eye) - ENT normal pinna, normal nares, normal mucosa, no hearing loss, no congestion - Neck no masses, no bruits, trachea midline, no lymphadectomy, no venous distension - Respiratory normal expansion, normal respiratory effort, clear to auscultation, other ( no rales rubs rhonchi or wheezes heard) - Cardiovascular Cardiovascular exam: Present: normal rate and rhythm, RRR, +S1, +S2, tachycardia. Absent: JVD - Abdomen non tender, bowel sounds (present), surgical scars (none), distended ( jefferson distended lower abdomen but no palpable masses noted; good active bowel sounds) - Integumentary no rash, no growths, no abnormal pigmentation - Neurologic normal coordination, normal sensation - Musculoskeletal other ( unstable gait and posture) - Psychiatric oriented to time, oriented to person, oriented to place, speech is normal, memory intact - Labs 10/15/17 04:07 10/15/17 04:07 Diabetes panel 10/15/17 Range/Units 04:07 Sodium 137 (133-145) mmol/L Potassium 3.4 (3.3-5.1) mmol/L Chloride 97 (96-108) mmol/L Carbon Dioxide 33 H (22-30) mmol/L BUN 9 (8-23) mg/dl Creatinine 0.8 (0.6-1.1) mg/dl Glucose 75 (70-105) mg/dL Calcium 8.1 L (8.6-10.4) mg/dl AST 23 (0-37) U/l ALT 11 (0-40) U/l Alkaline Phosphatase 37 L (39-117) U/L Total Protein 5.5 L (5.9-8.4) gm/dL Albumin 2.8 L (3.2-5.2) gm/dL Triglycerides 63 (<150) mg/dl Calcium panel 10/15/17 Range/Units 04:07 Calcium 8.1 L (8.6-10.4) mg/dl Phosphorus 2.7 (2.7-4.5) mg/dL Albumin 2.8 L (3.2-5.2) gm/dL Pituitary panel 10/15/17 Range/Units 04:07 Sodium 137 (133-145) mmol/L Potassium 3.4 (3.3-5.1) mmol/L Chloride 97 (96-108) mmol/L Carbon Dioxide 33 H (22-30) mmol/L BUN 9 (8-23) mg/dl Creatinine 0.8 (0.6-1.1) mg/dl Glucose 75 (70-105) mg/dL Calcium 8.1 L (8.6-10.4) mg/dl Adrenal panel 10/15/17 Range/Units 04:07 Sodium 137 (133-145) mmol/L Potassium 3.4 (3.3-5.1) mmol/L Chloride 97 (96-108) mmol/L Carbon Dioxide 33 H (22-30) mmol/L BUN 9 (8-23) mg/dl Creatinine 0.8 (0.6-1.1) mg/dl Glucose 75 (70-105) mg/dL Calcium 8.1 L (8.6-10.4) mg/dl Total Bilirubin 0.3 (0.0-1.0) mg/dL AST 23 (0-37) U/l ALT 11 (0-40) U/l Alkaline Phosphatase 37 L (39-117) U/L Total Protein 5.5 L (5.9-8.4) gm/dL Albumin 2.8 L (3.2-5.2) gm/dL Assessment and Plan (1) Anemia Status: Acute Assessment and plan: Patient is counseled for upper endoscopy and colonoscopy This will be done tomorrow Current Visit: Yes (2) Systolic congestive heart failure Status: Acute Current Visit: Yes (3) Hypertension Status: Acute Current Visit: Yes (4) Chronic obstructive pulmonary disease with frequent exacerbations Status: Acute Current Visit: Yes (5) Diabetes mellitus type 2 in nonobese Status: Acute Current Visit: Yes - Time Spent With Patient Total time spent is greater than 50% in coordination of care (as documented) at patient's floor/unit and/or counseling patient:
--- NOTE | 2017-10-15 15:08 | Ultrasound Report ---
Ultrasound-guided thoracentesis CLINICAL INFORMATION: Moderate left pleural effusion TECHNIQUE: Procedure and risks including possibility of bleeding, infection, and pneumothorax were explained to the patient. They understood and wished to proceed. With the patient in upright position, the fluid was first sonographically localized over the posterior left 10th intercostal space at posterior axillary line. The skin overlying this region was marked, prepped and locally anesthetized with 1% lidocaine using a 25-gauge needle to the level the parietal pleura. An 18-gauge Yueh needle was then advanced under sonographic guidance into the pleural fluid and 500 cc of simple appearing transudative fluid was aspirated. Post procedure scanning shows only minimal residual fluid. Patient tolerated procedure well without apparent complication. Follow-up chest x-ray to be obtained IMPRESSION: Successful thoracentesis yielding 500 cc of transudative appearing simple pleural fluid. No apparent complication Interpreted and Authenticated by: Jorge Barrera 10/15/17
--- NOTE | 2017-10-15 15:43 | Internal Med Progress Note ---
Medical - PN: Subj Patient information: Note initiated : 10/15/17 at 3:41 pm Service Date, if different from initiated Date: [] Patient: Heidi Zhu a 82 y/o F admitted on 10/12/17 for Low H&H/GI Bleed, CHF , Pleural Effusion. Chief Complaint: [] Interval history: Ms. Zhu is a 82 year old F with h/o chf, copd, on oxygen 2 L, cerebral aneurysm , pvd, presents to the ER today from [facility] for evaluation of low hb and progressively dropping hb. Daughter is by the bed side providing some history, pt is also able to participate in decision making process. The patient was admitted to [facility] last month it seems for respiratory failure, she was discharged home it seems, she was living with her grand daugther, but was unable to care for self, She was then admitted to [facility] 3 days ago. It seems her hb was checked during labs and her hb had dropped to 6.9, she was therefore sent here for further evaluation. The patient has no acute complaints or concerns, she is lying in bed without any complaints, no chest pain, no shortness of breath, no cough, no headache or dizziness, no changes or difficulty in swallowing, no GI complaints or symptoms , she has poor visino0 and unable t tell if she has had black stools or obvious blood in stools. In the ER she was noted to be hemodynamically stable, her CXR shows dell effusions, left > right, new since last cxr, but had effusions on previous x rays. her hb was 7.9, her f ob was positive. We do not have GI physician available for consult, Dr Aguilar our general surgeon was consulted who agreed to evaluate patient and do the need ful EGD/ Colonoscopy after pt is stable. 10/13 The patient seen examined, no acute overnight issues hb improved bu8t nmot > 9.0, pt on baseline oxygen needs has no complaints repeat transfusion again today Neg [address] chest neg for loculated effusion, will just use diuresis and see how she does CT abdomen ordered per surgery, will await results and surgery input with regards to further plans on bowel prep for colonoscopy/egd scopy 10/14 Pt seen examined, no acute overnight issues, pt received 1 unit prbc yesteday, hb 11.4 today, good rise no black stools, no hematuria, no hematochezia fob still positive Pt has no complaints on liquid diet awaiting decision from Dr Aguilar regarding plan for EGD/ Colonoscopy 10/15 Pt seen examined, no acute overnight issues, toleratong po well Plan for egd colonoscopy tomorrow CXR shwos stable effusion, did not improve with diuresis plan to tap fluid today USG guided by radiology pt has no complaints. hb stable. Pertinent ROS: Denies headache, dizziness Denies chest pain, palpitations Denies cough or shortness of breath Denies abdominal pain, nausea or vomiting. - Constitutional Vitals: Vital Signs Temp Pulse Resp BP Pulse Ox 98.2 F 74 18 123/65 93 10/15/17 11:15 10/15/17 12:48 10/15/17 12:48 10/15/17 11:15 10/15/17 11:15 Period Temp Pulse Resp BP Sys/Concepcion Pulse Ox Last 24 Hr 97.7 F-99.2 F 65-77 16-32 123-159/63-89 91-95 Intake and Output 10/15/17 10/15/17 10/15/17 05:59 13:59 21:59 Intake Total 100 / 100 650 / 650 Output Total 250 / 250 Balance -150 / -150 650 / 650 Intake & Output: Intake & Output 10/15/17 10/15/17 10/15/17 05:59 13:59 21:59 Intake Total 100 / 100 650 / 650 Output Total 250 / 250 Balance -150 / -150 650 / 650 Intake: Oral 100 / 100 650 / 650 Output: Urine Catheter Amount 250 / 250 Other: Meal Breakfast Percent of Meal Consumed 100% Feeding Ability Assist with Tray Set Up Stool Size Moderate Moderate Stool Color Brown Brown Stool Consistency Loose Liquid # Voids 1 # Bowel Movements 1 1 Exam: Constitutional; Afebrile, cooperative, alert, not in distress. Eyes- No icterus, , No periorbital swelling Ears- Ext ear normal, hearing normal to conversation. Neck- Midline trachea, supple Respiratory system: Air Entry equal decreased on left base, CVS- Rate rhythm regular, S1,S2 heard, no gallop, no rub. Abdomen- Soft nontender abdomen, no organomegaly, no tenderness, no guarding or rigidity, ARTIST SUSPECT- AOOx3, moving all extremities, Medical - PN: Obj Da - Labs CBC & Chem 7: 10/15/17 04:07 10/15/17 04:07 Labs: Abnormal Lab Results 10/15/17 10/15/17 10/15/17 10:36 04:07 04:07 WBC RBC 3.36 L Hgb 10.9 L Hct 32.1 L RDW 16.0 H Plt Count MPV 10.5 H Lymph % (Auto) [place] % (Auto) Lymph # (Auto) 0.8 L APTT 54 H Carbon Dioxide 33 H Anion Gap 7.0 L Glucose Calcium 8.1 L Alkaline Phosphatase 37 L Lactate Dehydrogenase Total Protein 5.5 L Albumin 2.8 L 10/14/17 10/14/17 10/13/17 03:52 03:52 03:45 WBC RBC 3.52 L Hgb 11.4 L Hct 33.4 L RDW 16.0 H Plt Count MPV Lymph % (Auto) 12.3 L [place] % (Auto) Lymph # (Auto) 0.7 L APTT Carbon Dioxide 33 H 31 H Anion Gap Glucose 67 L Calcium 8.4 L 8.3 L Alkaline Phosphatase 37 L 35 L Lactate Dehydrogenase 280 H 319 H Total Protein 5.5 L Albumin 3.1 L 2.8 L 10/13/17 10/12/17 03:45 21:20 WBC 4.3 L RBC 2.59 L 2.91 L Hgb 8.6 L 8.8 L Hct 25.2 L 26.8 L RDW 15.5 H 15.2 H Plt Count 138 L MPV Lymph % (Auto) 13.6 L Forest % (Auto) 12.7 H 15.9 H Lymph # (Auto) 0.7 L 0.7 L APTT Carbon Dioxide Anion Gap Glucose Calcium Alkaline Phosphatase Lactate Dehydrogenase Total Protein Albumin Meds: Medications Acetaminophen (Tylenol) 650 mg PO Q6HP PRN PRN Reason: PAIN/FEVER > 101 Albuterol/Ipratropium (Duoneb) 3 ml NEB Q6HRT [facility] Last Admin: 10/15/17 12:48 Dose: 3 ml Amlodipine Besylate (Norvasc) 5 mg PO DAILY [facility] Last Admin: 10/15/17 08:33 Dose: 5 mg Budesonide (Pulmicort) 0.5 mg NEB Q12 [facility] Last Admin: 10/15/17 07:54 Dose: 0.5 mg Clopidogrel Bisulfate (Plavix) 75 mg PO DAILY [facility] Last Admin: 10/15/17 08:32 Dose: 75 mg Famotidine (Pepcid) 20 mg PO BID [facility] Last Admin: 10/15/17 08:32 Dose: 20 mg Fish Oil (Fish Oil) 1,000 mg PO DAILY [facility] Last Admin: 10/15/17 08:32 Dose: 1,000 mg Furosemide (Lasix) 40 mg IV DAILY [facility] Last Admin: 10/15/17 08:33 Dose: 40 mg Hydroxyzine HCl (Atarax) 25 mg PO BIDP PRN PRN Reason: Itching Losartan Potassium (Cozaar) 50 mg PO DAILY [facility] Last Admin: 10/15/17 08:32 Dose: 50 mg Magnesium Citrate (Citroma) 300 ml PO BID@0600,1800 [facility] Stop: 10/15/17 18:01 Last Admin: 10/15/17 05:46 Dose: 300 ml Magnesium Hydroxide (Milk Of Magnesia) 30 ml PO DAILYP PRN PRN Reason: Constipation Metoprolol Tartrate (Lopressor) 25 mg PO BID [facility] Last Admin: 10/15/17 08:33 Dose: 25 mg Naloxone HCl (Narcan) 0.1 mg IV Q2MIN PRN PRN Reason: Opiate Reversal Ondansetron HCl (Zofran) 4 mg IV Q4HP PRN PRN Reason: Nausea And Vomiting Oxycodone/Acetaminophen (Percocet 5-325 Mg) 1 tab PO Q4HP PRN PRN Reason: PAIN LEVEL 3-6 Umeclidinium- Vilanterol [Anoro Ellipta] 62.5-25 Mcg Inhaler 1 dose INH DAILY [facility] Last Admin: 10/15/17 08:36 Dose: 1 dose Polyethylene Glycol (Miralax) 17 gm PO BID [facility] Last Admin: 10/15/17 08:31 Dose: 17 gm Raloxifene HCl (Evista) 60 mg PO DAILY [facility] Last Admin: 10/15/17 08:32 Dose: 60 mg Sodium Chloride (Saline Flush) 10 ml IV Q8 [facility] Last Admin: 10/15/17 14:58 Dose: Not Given Medical - PN: A/P - Time Spent With Patient Total time spent is greater than 50% in coordination of care (as documented) at patient's floor/unit and/or counseling patient: - Narrative A/P Narrative: A/P Acute GI bleed- egd, colonoscopy tomorrow Acute blood loss anemia- Hb stable, monitor. s/p 2 units transfusion congestive heart failure- Diastolic grade 2 , IV lasix for now, to continue Pleural effusion bilateral, left > right, could be from CHF , will tap today to see if any other etiology Severe atherosclerosis- continue antiplatelet agents. COPD continue anoro, prn bronchodilator, on 2L oxygen stable requirements. No wheezing. HTN- continue beta nannette, resume norvasc and losartan given stable bp and renal function. DVT scd given GIB DNR code status Medical - PN: Qual - VTE Deep Vein Thrombosis/Pulmonary Embolism Present on Admission: No
--- NOTE | 2017-10-15 15:48 | XRay Report ---
CLINICAL INFORMATION: Post thoracentesis COMPARISON: 10/15/2017 FINDINGS: [Following left thoracentesis, there is only small residual left pleural effusion. No pneumothorax or other complication. Small right pleural effusion unchanged. Heart is mildly enlarged, but stable. The mediastinum and pulmonary vessels are normal. COPD changes appreciated. Atelectasis in the left lung base has improved IMPRESSION: Following left thoracentesis, only small residual left pleural effusion. The atelectatic inferior left lower lobe and lingula have partially reexpanded. No pneumothorax or other complication. Small right pleural effusion stable COPD stable Interpreted and Authenticated by: Jorge Barrera 10/15/17
[2017-10-15 16:33] LABS: Amylase,Pleural Fluid 39 U/L; Glucose,Pleural Fluid 138 mg/dL; LDH,Pleural Fluid 82 U/L
[2017-10-15 17:18] LABS: Appearance,Pleural Fluid CLEAR; Color,Pleural Fluid STRAW; Lymphocytes,Pleural Fluid 65 %; Neutrophils,Pleural Fluid 10 %; RBC,Pleural Fluid < 50000 /cumm
[2017-10-15 17:31] LABS: pH,Body Fluid 7.79
[2017-10-16] MEDS: IPRATROPIUM/ALBUTEROL 3 ML AMPUL.NEB NEB SCH ×2 (02:48→07:28)
[2017-10-16 05:45] LABS: Basophils # (Auto) 0 K/mcL (0.0-0.3); Basophils % (Auto) 0.2 % (0.0-2.0); Eosinophils # (Auto) 0 K/mcL (0.0-0.7); Eosinophils % (Auto) 0.8 % (0.0-7.0); Granulocytes % (Auto) 76.3 % (38.0-78.0); Lymphocytes # (Auto) 0.7 K/mcL (1.5-4.8); Lymphocytes % (Auto) 12.4 % (15.5-49.0); Mean Cell Volume 94.2 fL (80.0-100.0); Mean Corpuscular HGB Conc 32.7 g/dL (31.0-36.0); Mean Corpuscular Hemoglobin 30.8 pg (26.0-34.0); Monocytes # (Auto) 0.6 K/mcL (0.1-0.9); Monocytes % (Auto) 10.3 % (1.0-12.0); Platelet Count 165 K/mcL (140-440); RBC 3.59 M/mcL (4.00-5.20); Red Cell Distribution Width 15.6 % (11.5-14.5)
[2017-10-16] MEDS: 0.9 % SODIUM CHLORIDE 10 ML SYRINGE IV SCH ×2 (06:24→13:07)
[2017-10-16 06:32] LABS: ALT/SGPT 10 U/l (0-40); Albumin 3.1 gm/dL (3.2-5.2); Albumin/Globulin Ratio 1.2 (1.0-2.3); Alkaline Phosphatase 44 U/L (39-117); Bilirubin,Direct < 0.2 mg/dL (0.0-0.3); Blood Urea Nitrogen 9 mg/dl (8-23); Gamma Glutamyl Transpeptidase 13 U/L (5-36); Uric Acid 6.3 mg/dL (2.5-8.0)
[2017-10-16] MEDS: BUDESONIDE 0.5 MG/2 ML AMPUL.NEB NEB SCH (07:28)
[2017-10-16] MEDS: FISH OIL 1,000 MG CAPSULE PO SCH (08:04)
[2017-10-16] MEDS: RALOXIFENE HCL 60 MG TABLET PO SCH (08:04)
[2017-10-16] MEDS: amLODIPine 5 MG TABLET PO SCH (08:04)
[2017-10-16] MEDS: LOSARTAN 50 MG TABLET PO SCH (08:05)
[2017-10-16] MEDS: FAMOTIDINE 20 MG TABLET PO SCH ×2 (08:05→21:42)
[2017-10-16] MEDS: CLOPIDOGREL 75 MG TABLET PO SCH (08:05)
[2017-10-16] MEDS: METOPROLOL TARTRATE 25 MG TABLET PO SCH ×2 (08:05→21:42)
[2017-10-16] MEDS: Umeclidinium-Vilanterol [Anoro Ellipta] 62.5-25 mcg Inhaler INH SCH (08:06)
[2017-10-16] MEDS: POLYETHYLENE GLYCOL 3350 17 GM PACKET PO SCH ×2 (08:06→21:42)
[2017-10-16] MEDS ORDERED: POTASSIUM CHLORIDE 80 MEQ in DEXTROSE 5% IN WATER 1,000 ML IV ONE (09:00)
[2017-10-16] MEDS: FUROSEMIDE 40 MG/4 ML VIAL IV SCH (09:45)
[2017-10-16] MEDS ORDERED: IPRATROPIUM/ALBUTEROL 3 ML AMPUL.NEB NEB PRN ×2 (11:12→14:34)
[2017-10-16] MEDS ORDERED: KETAMINE 100 MG/ML ML IV ONE (13:20)
[2017-10-16] MEDS ORDERED: PROPOFOL 200 MG/20 ML VIAL IV ONE (13:20)
--- NOTE | 2017-10-16 14:05 | Brief Operative Note ---
Date of procedure: 10/16/17 Pre-op diagnosis: G I BLEEDING AND ANEMIA Post-op diagnosis: other (MILD CHRONIC GASTRITIS;DIVERTICULOSIS) Procedure: EGD WIT BIOPSIES AND COLONOSCOPY Grafts/Implants: No Anesthesia: other (GENERAL) Findings: MILD INFLAMMATION OF ANTRUM DIFFUSE DIVERTICULOSIS Complications: none Surgeon: Sanjay Aguilar Specimens Removed/Pathology: other (ANTRAL BIOPSIES) Condition: stable Disposition: same day
--- NOTE | 2017-10-16 14:20 | Internal Med Progress Note ---
Medical - PN: Subj Patient information: Note initiated : 10/16/17 at 2:18 pm Service Date, if different from initiated Date: [] Patient: Heidi Zhu a 82 y/o F admitted on 10/12/17 for Low H&H/GI Bleed, CHF , Pleural Effusion. Chief Complaint: [] Interval history: Ms. Zhu is a 82 year old F with h/o chf, copd, on oxygen 2 L, cerebral aneurysm , pvd, presents to the ER today from [facility] for evaluation of low hb and progressively dropping hb. Daughter is by the bed side providing some history, pt is also able to participate in decision making process. The patient was admitted to [facility] last month it seems for respiratory failure, she was discharged home it seems, she was living with her grand daugther, but was unable to care for self, She was then admitted to [facility] 3 days ago. It seems her hb was checked during labs and her hb had dropped to 6.9, she was therefore sent here for further evaluation. The patient has no acute complaints or concerns, she is lying in bed without any complaints, no chest pain, no shortness of breath, no cough, no headache or dizziness, no changes or difficulty in swallowing, no GI complaints or symptoms , she has poor visino0 and unable t tell if she has had black stools or obvious blood in stools. In the ER she was noted to be hemodynamically stable, her CXR shows dell effusions, left > right, new since last cxr, but had effusions on previous x rays. her hb was 7.9, her f ob was positive. We do not have GI physician available for consult, Dr Aguilar our general surgeon was consulted who agreed to evaluate patient and do the need ful EGD/ Colonoscopy after pt is stable. 10/13 The patient seen examined, no acute overnight issues hb improved bu8t nmot > 9.0, pt on baseline oxygen needs has no complaints repeat transfusion again today Neg [address] chest neg for loculated effusion, will just use diuresis and see how she does CT abdomen ordered per surgery, will await results and surgery input with regards to further plans on bowel prep for colonoscopy/egd scopy 10/14 Pt seen examined, no acute overnight issues, pt received 1 unit prbc yesteday, hb 11.4 today, good rise no black stools, no hematuria, no hematochezia fob still positive Pt has no complaints on liquid diet awaiting decision from Dr Aguilar regarding plan for EGD/ Colonoscopy 10/15 Pt seen examined, no acute overnight issues, toleratong po well Plan for egd colonoscopy tomorrow CXR shwos stable effusion, did not improve with diuresis plan to tap fluid today USG guided by radiology pt has no complaints. hb stable. 10/16 Patient seen and examined no acute overnight events, n.p.o. today for her EGD and colonoscopy. Pleural effusion tapped yesterday transudative effusion. Patient has no complaints Hemoglobin is stable Pertinent ROS: Denies headache, dizziness Denies chest pain, palpitations Denies cough or shortness of breath Denies abdominal pain, nausea or vomiting. - Constitutional Vitals: Vital Signs Temp Pulse Resp BP Pulse Ox 98 F 60 26 H 152/77 96 10/16/17 12:00 10/16/17 12:00 10/16/17 12:00 10/16/17 12:00 10/16/17 12:00 Period Temp Pulse Resp BP Sys/Concepcion Pulse Ox Last 24 Hr 97.6 F-99 F 60-81 16-26 134-156/57-77 91-96 Intake and Output 10/16/17 10/16/17 10/16/17 05:59 13:59 21:59 Intake Total 1300 / 1300 Output Total 1350 / 1350 575 / 575 Balance -50 / -50 -575 / -575 Intake & Output: Intake & Output 10/16/17 10/16/17 10/16/17 05:59 13:59 21:59 Intake Total 1300 / 1300 Output Total 1350 / 1350 575 / 575 Balance -50 / -50 -575 / -575 Intake: Oral 300 / 300 Other 1000 / 1000 Output: Urine Catheter Amount 350 / 350 575 / 575 Stool 100 / 100 Other 900 / 900 Other: Stool Size Moderate Moderate Stool Color Brown Brown Stool Consistency Liquid Liquid Loose Watery # Bowel Movements 1 1 Exam: Constitutional; Afebrile, cooperative, alert, not in distress. Respiratory system: Air Entry equal on both sides, left basilar cracklesn oted, no wheeze CVS- Rate rhythm regular, S1,S2 heard, no gallop, no rub. Abdomen- Soft nontender abdomen, no organomegaly, no tenderness, no guarding or rigidity, SENIOR LIVING ADVISOR- AOOx3, moving all extremities, no gross focal deficit noted. Medical - PN: Obj Da - Labs CBC & Chem 7: 10/16/17 04:36 10/16/17 04:36 Labs: Abnormal Lab Results 10/16/17 10/16/17 10/15/17 04:36 04:36 10:36 RBC 3.59 L Hgb 11.0 L Hct 33.8 L RDW 15.6 H MPV 10.5 H Lymph % (Auto) 12.4 L Lymph # (Auto) 0.7 L APTT 54 H Potassium 3.2 L Carbon Dioxide 36 H Anion Gap 5.0 L Glucose Calcium 8.2 L Phosphorus 2.5 L Magnesium 2.8 H Alkaline Phosphatase Lactate Dehydrogenase 317 H Total Protein 5.7 L Albumin 3.1 L 10/15/17 10/15/17 10/14/17 04:07 04:07 03:52 RBC 3.36 L Hgb 10.9 L Hct 32.1 L RDW 16.0 H MPV 10.5 H Lymph % (Auto) Lymph # (Auto) 0.8 L APTT Potassium Carbon Dioxide 33 H 33 H Anion Gap 7.0 L Glucose 67 L Calcium 8.1 L 8.4 L Phosphorus Magnesium Alkaline Phosphatase 37 L 37 L Lactate Dehydrogenase 280 H Total Protein 5.5 L Albumin 2.8 L 3.1 L 10/14/17 03:52 RBC 3.52 L Hgb 11.4 L Hct 33.4 L RDW 16.0 H MPV Lymph % (Auto) 12.3 L Lymph # (Auto) 0.7 L APTT Potassium Carbon Dioxide Anion Gap Glucose Calcium Phosphorus Magnesium Alkaline Phosphatase Lactate Dehydrogenase Total Protein Albumin Meds: Medications Acetaminophen (Tylenol) 650 mg PO Q6HP PRN PRN Reason: PAIN/FEVER > 101 Albuterol/Ipratropium (Duoneb) 3 ml NEB Q6HP PRN PRN Reason: Shortness Of Breath Or Wheezing Amlodipine Besylate (Norvasc) 5 mg PO DAILY [facility] Last Admin: 10/16/17 08:04 Dose: 5 mg Clopidogrel Bisulfate (Plavix) 75 mg PO DAILY [facility] Last Admin: 10/16/17 08:05 Dose: 75 mg Famotidine (Pepcid) 20 mg PO BID [facility] Last Admin: 10/16/17 08:05 Dose: 20 mg Fish Oil (Fish Oil) 1,000 mg PO DAILY [facility] Last Admin: 10/16/17 08:04 Dose: 1,000 mg Furosemide (Lasix) 40 mg IV DAILY [facility] Last Admin: 10/16/17 09:45 Dose: 40 mg Hydroxyzine HCl (Atarax) 25 mg PO BIDP PRN PRN Reason: Itching Potassium Chloride 80 meq/ (Dextrose) 1,040 mls @ 130 mls/hr IV ONCE ONE Stop: 10/16/17 16:59 Last Admin: 10/16/17 09:45 Dose: 130 mls/hr Losartan Potassium (Cozaar) 50 mg PO DAILY [facility] Last Admin: 10/16/17 08:05 Dose: 50 mg Metoprolol Tartrate (Lopressor) 25 mg PO BID [facility] Last Admin: 10/16/17 08:05 Dose: 25 mg Naloxone HCl (Narcan) 0.1 mg IV Q2MIN PRN PRN Reason: Opiate Reversal Ondansetron HCl (Zofran) 4 mg IV Q4HP PRN PRN Reason: Nausea And Vomiting Oxycodone/Acetaminophen (Percocet 5-325 Mg) 1 tab PO Q4HP PRN PRN Reason: PAIN LEVEL 3-6 Umeclidinium- Vilanterol [Anoro Ellipta] 62.5-25 Mcg Inhaler 1 dose INH DAILY [facility] Last Admin: 10/16/17 08:06 Dose: 1 dose Polyethylene Glycol (Miralax) 17 gm PO BID [facility] Last Admin: 10/16/17 08:06 Dose: 17 gm Raloxifene HCl (Evista) 60 mg PO DAILY [facility] Last Admin: 10/16/17 08:04 Dose: 60 mg Sodium Chloride (Saline Flush) 10 ml IV Q8 [facility] Last Admin: 10/16/17 13:07 Dose: Not Given Medical - PN: A/P - Time Spent With Patient Total time spent is greater than 50% in coordination of care (as documented) at patient's floor/unit and/or counseling patient: - Narrative A/P Narrative: A/P Acute GI bleed- egd, colonoscopy today Acute blood loss anemia- Hb 11 stable, monitor. s/p 2 units transfusion congestive heart failure- Diastolic grade 2 , IV lasix for now, to continue, switch to oral at discharge. Pleural effusion bilateral, left > right, could be from CHF , ws/p tap, transudative effusion Severe atherosclerosis- continue antiplatelet agents. COPD continue anoro, prn bronchodilator, on 2L oxygen stable requirements. No wheezing. continue home anoro HTN- continue beta nannette, resume norvasc and losartan given stable bp and renal function. DVT scd given GIB DNR code status Medical - PN: Qual - VTE Deep Vein Thrombosis/Pulmonary Embolism Present on Admission: No
[2017-10-16] MEDS ORDERED: ACETAMINOPHEN 325 MG TABLET PO PRN (14:34)
[2017-10-16] MEDS ORDERED: ONDANSETRON 4 MG/2 ML VIAL IV PRN (14:34)
[2017-10-16] MEDS ORDERED: hydrOXYzine 25 MG TABLET PO PRN (14:34)
[2017-10-16] MEDS ORDERED: oxyCODONE/APAP 5/325MG TABLET PO PRN (14:34)
[2017-10-17] MEDS: 0.9 % SODIUM CHLORIDE 10 ML SYRINGE IV SCH ×2 (01:11→05:57)
[2017-10-17 06:59] LABS: Basophils # (Auto) 0 K/mcL (0.0-0.3); Basophils % (Auto) 0.8 % (0.0-2.0); Eosinophils # (Auto) 0.1 K/mcL (0.0-0.7); Eosinophils % (Auto) 1.5 % (0.0-7.0); Granulocytes % (Auto) 68.8 % (38.0-78.0); Lymphocytes # (Auto) 0.9 K/mcL (1.5-4.8); Lymphocytes % (Auto) 16.8 % (15.5-49.0); Mean Cell Volume 92.2 fL (80.0-100.0); Mean Corpuscular HGB Conc 33.1 g/dL (31.0-36.0); Mean Corpuscular Hemoglobin 30.5 pg (26.0-34.0); Monocytes # (Auto) 0.6 K/mcL (0.1-0.9); Monocytes % (Auto) 12.1 % (1.0-12.0); Platelet Count 154 K/mcL (140-440); RBC 3.52 M/mcL (4.00-5.20); Red Cell Distribution Width 16.1 % (11.5-14.5)
[2017-10-17 07:39] LABS: ALT/SGPT 14 U/l (0-40); Albumin 2.9 gm/dL (3.2-5.2); Alkaline Phosphatase 44 U/L (39-117); Bilirubin,Direct < 0.2 mg/dL (0.0-0.3); Blood Urea Nitrogen 11 mg/dl (8-23); Gamma Glutamyl Transpeptidase 35 U/L (5-36); Uric Acid 5.8 mg/dL (2.5-8.0)
[2017-10-17] MEDS: FAMOTIDINE 20 MG TABLET PO SCH (08:14)
[2017-10-17] MEDS: METOPROLOL TARTRATE 25 MG TABLET PO SCH (08:15)
[2017-10-17] MEDS: POLYETHYLENE GLYCOL 3350 17 GM PACKET PO SCH (08:15)
[2017-10-17] MEDS ORDERED: RALOXIFENE HCL 60 MG TABLET PO SCH (09:00)
[2017-10-17] MEDS ORDERED: LOSARTAN 50 MG TABLET PO SCH (09:00)
[2017-10-17] MEDS ORDERED: CLOPIDOGREL 75 MG TABLET PO SCH (09:00)
[2017-10-17] MEDS ORDERED: FUROSEMIDE 40 MG/4 ML VIAL IV SCH (09:00)
[2017-10-17] MEDS ORDERED: amLODIPine 5 MG TABLET PO SCH (09:00)
[2017-10-17] MEDS ORDERED: FISH OIL 1,000 MG CAPSULE PO SCH (09:00)
--- NOTE | 2017-10-17 09:21 | Discharge Summary ---
Medical - DS: Prov Patient information: Note initiated : 10/17/17 at 9:19 am Service Date, if different from initiated Date: [] Patient: Heidi Zhu 82 y/o F admitted on 10/12/17 for Low H&H/GI Bleed, CHF , Pleural Effusion. Chief Complaint: [] Date of admission: 10/12/17 13:50 Discharge date: 10/17/17 Primary care physician: Nicole Rey Admitting clinician: Lurdes Hopper Consults: 10/12/17 11:48 Consult to Physician [CONS] Stat Comment: Consulting Provider: Sanjay Aguilar Reason For Exam: Physician to Consult 10/12/17 12:20 Consult to Physician [CONS] Stat Comment: Consulting Provider: Lurdes Hopper Reason For Exam: Physician to Consult Discharging clinician: Lurdes Hopper Medical - DS: Meds - Discharge Medications Prescriptions: Pantoprazole [Protonix] 40 mg PO QAMAC #30 tablet Active and Home Medications: Home Medications Raloxifene HCl [Evista] 60 mg PO DAILY 07/16/16 [History Confirmed 10/12/17 Last Taken Unknown] amLODIPine [Norvasc] 5 mg PO DAILY 07/16/16 [History Confirmed 10/12/17 Last Taken Unknown] hydrOXYzine [Atarax] 25 mg PO BIDP PRN 07/16/16 [History Confirmed 10/12/17 Last Taken Unknown] Acetaminophen [Tylenol] 650 mg PO Q4HP PRN 10/12/17 [History Confirmed 10/12/17 Last Taken Unknown] Anoro Ellipta 1 appful IN DAILY 10/12/17 [History Confirmed 10/12/17 Last Taken Unknown] Bisacodyl [Dulcolax] 10 mg IL DAILYP PRN 10/12/17 [History Confirmed 10/12/17 Last Taken Unknown] Clopidogrel Bisulfate [Plavix] 75 mg PO DAILY 10/12/17 [History Confirmed Last Taken Unknown] Fish Oil/Borage/Flax/Om3,6,9#1 [[place] 3-6-9 Complex Softgel] 400 mg PO DAILY [History Confirmed 10/12/17 Last Taken Unknown] Furosemide [Lasix] 20 mg PO BID 10/12/17 [History Confirmed 10/12/17 Last Taken Unknown] Losartan Potassium [Cozaar] 100 mg PO DAILY 10/12/17 [History Confirmed Last Taken Unknown] Magnesium Hydroxide [Milk of Magnesia] 30 ml PO DAILYP PRN 10/12/17 [History Confirmed 10/12/17 Last Taken Unknown] Metoprolol Tartrate [Lopressor] 25 mg PO BID 10/12/17 [History Confirmed Last Taken Unknown] Multivitamin,Ther and Minerals [Multivitamins with Minerals Hp] 1 each PO DAILY 10/12/17 [History Confirmed 10/12/17 Last Taken Unknown] Na Phos,M-B/Na Phos,Di-Ba [Fleets Adult] 1 dose [place] DAILYP PRN 10/12/17 [History Confirmed 10/12/17 Last Taken Unknown] Ranitidine HCl [Heartburn Relief] 150 mg PO BID 10/12/17 [History Confirmed Last Taken Unknown] Medical - DS: Hosp Hospital course: Ms. Zhu is a 82 year old F with h/o chf, copd, on oxygen 2 L, cerebral aneurysm , pvd, presents to the ER today from [facility] for evaluation of low hb and progressively dropping hb. The patient was admitted to [facility] last month it seems for respiratory failure, she was discharged home it seems, she was living with her grand daugther, but was unable to care for self, She was then admitted to [facility] 3 days ago. It seems her hb was checked during labs and her hb had dropped to 6.9, she was therefore sent here for further evaluation. In the ER she was noted to be hemodynamically stable, her CXR shows dell effusions, left > right, new since last cxr, but had effusions on previous x rays. her hb was 7.9, her fob was positive. GI bleed, Patient had total of 2 units transfusion, the patient responded to transfusions well, her hb improved from 7.9 to 10-11, and reamained stable, the patient underwent a CT Abdomen which was neg for any acute pathology, She underwent a EGD/ Colonoscopy which showed antral gastritis, no e/o acute bleed She is started no pantoprazole and is stable for D/c Pleural effusion- Pt has dell effusion left > right, the fluid effusion did not respond to diuresis, she had thoracocentesis, and 500cc fluid aspirated, transudative in nature. Patient will continue to be on home dose of diuretic at discharge. Chest Ct neg for loculated effusion. The rest of the hospital stay was uneventful, no changes made to her [facility] home med list, she will be discharged back to rehab center/ [facility] Discharge diagnosis: GI bleed - Time Spent with Patient Total time spent providing and/or coordinating discharge services: Greater than 30 minutes Medical - DS: Exam - Constitutional Vitals: Vital Signs Temp Pulse Resp BP BP Pulse Ox 10/17/17 07:55 82 90 10/17/17 07:09 97.5 F 82 24 H 157/78 90 10/17/17 04:00 97.9 F 71 28 H 166/73 90 10/17/17 01:26 26 H 10/17/17 00:25 28 H 10/17/17 00:00 97.3 F 73 28 H 158/70 92 10/16/17 22:18 28 H 10/16/17 20:00 97.6 F 69 30 H 142/65 93 10/16/17 15:49 72 160/72 96 10/16/17 15:32 67 159/73 94 10/16/17 15:17 67 158/69 90 10/16/17 15:02 65 159/69 94 10/16/17 14:47 60 164/75 90 10/16/17 14:32 98.0 F 59 L 20 168/72 90 10/16/17 14:25 61 16 174/80 95 10/16/17 14:20 67 16 160/72 98 10/16/17 14:06 65 16 157/78 98 10/16/17 12:00 98 F 60 26 H 152/77 96 Intake and Output 10/16/17 10/17/17 10/17/17 21:59 05:59 13:59 Intake Total 50 / 50 600 / 600 Output Total 400 / 400 325 / 325 Balance -400 / -400 -275 / -275 600 / 600 Intake: Oral 50 / 50 600 / 600 Output: Urine Catheter Amount 400 / 400 325 / 325 Other: Meal Breakfast Percent of Meal Consumed 75% Feeding Ability Independent # Bowel Movements 1 Weight 99 lb Additional comments: Constitutional; Afebrile, cooperative, alert, not in distress. Respiratory system: Air Entry equal on both sides, No crackles or wheezing, no rhonchi. CVS- Rate rhythm regular, S1,S2 heard, no gallop, no rub. Abdomen- Soft nontender abdomen, no organomegaly, no tenderness, no guarding or rigidity, [employer] NURSE PRACTITIONER- AOOx3, moving all extremities, no gross focal deficit noted. Medical - DS: Data Labs on day of discharge: Labs from last 24 hours 10/17/17 10/17/17 05:32 05:32 WBC 5.2 RBC 3.52 L Hgb 10.7 L Hct 32.4 L MCV 92.2 MCH 30.5 MCHC 33.1 RDW 16.1 H Plt Count 154 MPV 10.4 Gran % 68.8 Lymph % (Auto) 16.8 [place] % (Auto) 12.1 H Eos % (Auto) 1.5 Baso % (Auto) 0.8 Gran # 3.6 Lymph # (Auto) 0.[address] [place] # (Auto) 0.6 Eos # (Auto) 0.1 Baso # (Auto) 0 Sodium 135 Potassium 4.7 Chloride 96 Carbon Dioxide 33 H Anion Gap 6.0 L BUN 11 Creatinine 0.9 GFR Calculation 59 Glucose 74 Uric Acid 5.8 Calcium 8.4 L Phosphorus 2.6 L Magnesium 2.3 Total Bilirubin 0.4 Direct Bilirubin < 0.2 GGT 35 AST 26 ALT 14 Alkaline Phosphatase 44 Lactate Dehydrogenase 309 H Total Protein 5.9 Albumin 2.9 L Globulin 3.0 Albumin/Globulin Ratio 1.0 Triglycerides 59 Preliminary micro results at discharge 10/15/17 10:29 Body Fluid Culture - Preliminary Pleural Fluid Medical - DS: A/P - Patient/Caregiver Discharge Instructions Activity: increase activity as tolerated Diet: Cardiac Additional Instructions: Follow up with PCP in 1 week Start on pantoprazole 40mg daily 30mins before breakfast Recommend PCP check cbc in 1 week to ensure stability Go to the ER if worsening symptoms, blood in stools, black stools, chest pain , fever shortness of breath or any other acute concerns. - Follow up Plan Follow up with: Nicole Rey ARNP [Primary Care Provider] - Disposition: Xfer SNF Prognosis: Fair Rehab Potential: Fair I certify that the patient requires SNF services: Yes Overall status at discharge: patient is back to baseline Medical - DS: Qual - VTE Deep Vein Thrombosis/Pulmonary Embolism Present on Admission: No
--- NOTE | 2017-10-17 11:54 | Surgical Pathology Report ---
HISTOLOGY SPECIMEN MICROSCOPIC DIAGNOSIS STOMACH, ANTRUM, BIOPSY: -- MODERATE CHRONIC GASTRITIS WITH INTESTINAL (GOBLET CELL) METAPLASIA. -- ALCIAN YELLOW STAIN NEGATIVE FOR HELICOBACTER PYLORI TYPE ORGANISMS (ADEQUATE TECHNICAL CONTROL). (ACP:ted) CLINICAL HISTORY GI bleeding and anemia. PROCEDURAL IMPRESSION Mild chronic gastritis; diverticulosis. GROSS DESCRIPTION Received in formalin labeled antrum biopsy, is a 0.3 cm pink-reed tissue fragment. Totally submitted - one cassette. ([facility]) Electronically Signed by: Brian Luke M.D.
--- NOTE | 2017-10-17 14:58 | Non-GYN Cytology Report ---
NON FAMILY SERVICES COORDINATOR SPECIMEN NG DX CATEGORY Negative MICROSCOPIC DIAGNOSIS LEFT PLEURAL FLUID, THORACENTESIS: -- NEGATIVE FOR MALIGNANCY. (EBD:adj) MICROSCOPIC DESCRIPTION Cytologic preparations show single and small clusters of reactive mesothelial cells with associated mixed acute and chronic inflammation. No atypical or malignant cells are identified. CLINICAL HISTORY Left pleural effusion; low H&H; GI bleed; CHF. EXTERNAL COMMENT ~300 mL yellow fluid: 1 thinprep, 2 H/E, 1 Diff Quik, 2 Urias Giemsa, 1 cell block Electronically Signed by: Jennie Jaramillo M.D.
--- NOTE | 2017-10-18 07:01 | Operative Note ---
DATE OF OPERATION: 10/16/2017 PREOPERATIVE DIAGNOSIS: GI bleeding and anemia. POSTOPERATIVE DIAGNOSIS: Mild chronic gastritis and diffuse diverticulosis. PROCEDURE: Esophagogastroduodenoscopy with biopsies and colonoscopy. SURGEON: Sanjay Aguilar MD FINDINGS: Mild inflammation of antrum of the stomach, diffuse diverticulosis extending to the cecum. DESCRIPTION OF PROCEDURE: Under general anesthesia, the patient was turned to in the left lateral decubitus position. A bite block was placed. Endoscope was introduced through the bite block into the retropharynx and into the esophagus. The esophagus was unremarkable down to the GE junction. GE junction was normal. There was chronic slightly thickened mucosa which was more prominent in the antrum. There were no acute ulcerations. There were no erosions. Pylorus opened appropriately. The scope was extended to the 3rd portions of the duodenum. No duodenal lesions were noted. Scope was pulled back and retroflexed view was done. No abnormalities were seen except for the chronic inflammation. Biopsies of the antrum were done for CLOtest and for routine pathology. Air was suctioned from the stomach and the scope was removed. The patient tolerated the procedure well. After completion of the upper endoscopy, the patient was repositioned. Digital examination of the anus was carried out and was unremarkable. The scope was introduced and maneuvered to the cecum without difficulty. The cecum was identified by the opening of the appendix, ileocecal valve, and confluence of the taenia. The cecum was normal. There were few openings of diverticulosis in the cecum. The ascending colon revealed no abnormality. Transverse colon was normal except for increasing population of diverticula. The descending and sigmoid colon were normal. There were no polyps. There was a very tiny unremarkable 3-vessel conglomeration of an AVM in the mid descending colon. The overlying mucosa was normal and there was no evidence of free bleeding. There were extensive wide- mouthed diverticula in the sigmoid colon. Rectum was normal. Retroflex view of the rectum revealed no abnormality. The patient tolerated the procedure well. Air was suctioned from the distal sigmoid and rectum and scope was removed. The patient tolerated the procedure well. She was allowed to awaken and was transferred to same day recovery area for routine recovery. LCS:minerva Job ID: [id number] Doc ID: [id number] Sanjay Aguilar M.D.
[2017-11-01 19:59] LABS: Nucleated Cells,Pleural Fld 18 /cumm
[2017-11-10 07:57] LABS: Monocytes,Pleural Fluid 24 %
== END 2017-10-17 11:10 | DRG 378 ==
LOC: ED 10:12 → ICU 13:50 → MEDSUR 10-14 12:45
PROVIDERS: ADMIT Internal Medicine; ATTEND Internal Medicine